=== PATIENT | female | born 1975 | race Hispanic/Latino ===

== ENCOUNTER 2018-11-20 19:17 | Emergency (ER) | payer OTHER ==
[~2018-11-20 19:17] MED LIST: GEMFIBROZIL PO; INSU100I3 SQ; INSU100I4 SQ; OMEG1CAP31 PO
[2018-11-20 20:01] LABS: BASOPHILS % (AUTO) 0.7 % (0.0-5.0); EOSINOPHILS % (AUTO) 0.8 % (0.0-8.0); HEMATOCRIT 37.4 % (36-48); LYMPHOCYTES % (AUTO) 21.5 % (21.0-51.0); MEAN CORPUSCULAR HEMOGLOBIN 30.2 pg (27.0-33.0); MEAN CORPUSCULAR HGB CONC 34.7 g/dL (32.0-36.0); MONOCYTES % (AUTO) 6.1 % (3.0-13.0); NEUTROPHILS % (AUTO) 70.9 % (40.0-77.0); PLATELET COUNT (AUTO) 205 K/uL (130-400); RED CELL DISTRIBUTION WIDTH 12.5 % (11.0-15.5); WHITE BLOOD COUNT (AUTO) 8.6 K/uL (4.8-10.8)
[2018-11-20 20:12] LABS: CREATININE 0.6 mg/dL (0.5-1.5); POTASSIUM 3.2 mmol/L (3.5-5.1)
[2018-11-20 20:17] LABS: ALBUMIN 3.7 g/dL (3.5-5.0); BILIRUBIN,TOTAL 0.2 mg/dL (0.2-1.0); TOTAL PROTEIN, SERUM 8.3 g/dL (6.0-8.3)
[2018-11-20] MEDS ORDERED: POTASSIUM CHLORIDE 20 MEQ ERTAB PO ONE (20:24)
[2018-11-20] MEDS ORDERED: ONDANSETRON HCL 4 MG/2 ML VIAL ONE (21:00)
[2018-11-20] MEDS ORDERED: DEXTROSE 50%-WATER 50 ML DISP.SYRIN IV ONE (21:16)
== END 2018-11-20 23:14 | disposition home or self-care (01) ==
LOC: EDH 19:17
DX: E11.649 Type 2 diabetes mellitus with hypoglycemia without coma (principal); E87.6 Hypokalemia; R00.2 Palpitations; R61 Generalized hyperhidrosis; T38.3X5A Adverse effect of insulin and oral hypoglycemic [antidiabetic] drugs, initial encounter; Z79.4 Long term (current) use of insulin; Y92.89 Other specified places as the place of occurrence of the external cause
CPT/HCPCS: 36415; 80053; 82948 ×4; 85025; 93005; 96374; 96375; 99285; J2405; J7070

== ENCOUNTER → 2019-05-08 | Outpatient (CLI) | payer OTHER | END | disposition home or self-care (01) | LOC: LAB 09:27 | PROVIDERS: ATTEND Internal Medicine Gastroenterology | DX: R19.7 Diarrhea, unspecified (principal) | CPT/HCPCS: 36415; 82656; 82784; 83516; 87507 ==

== ENCOUNTER 2019-05-15 06:06 | Day surgery (SDC) | payer OTHER ==
[~2019-05-15] VITALS: Ht 162.6 cm; Wt 59.0 kg
[2019-05-15] MEDS ORDERED: SODIUM CHLORIDE 0.9% 1000ML 1,000 ML IV ONE (06:32)
[2019-05-15] MEDS ORDERED: PROPOFOL 10 MG/ML 20ML VIAL IV ONE (06:55)
[2019-05-15 07:11] VITALS: BP 137/79
--- NOTE | 2019-05-15 07:18 | NUR ---
NURSING REPORTED B/S OF 281 TO NNEKA SILVER CRNA AND NO NEW ORDERS RECD Addendum: 05/15/19 at 0720 by ANISH SETH RN Amended: Links added.
[2019-05-15 08:36] VITALS: BP 104/65
[2019-05-15 08:41] VITALS: BP 113/69
--- NOTE | 2019-05-15 08:45 | NUR ---
SPOKE WITH GI AND INFORMED THAT PT. WAS TACHY 110. IS AWARE THAT PT RUNS IN 100'S FOR HR. NO NEW ORDERS GIVEN FOR PT. Addendum: 05/15/19 at 0922 by ARUNA CAMARILLO RN RN DR. COBB IS AWARE OF PT. HR NO NEW ORDERS GIVEN
[2019-05-15 08:46] VITALS: BP 124/90
[2019-05-15 09:00] VITALS: BP 148/88
--- NOTE | 2019-05-15 09:10 | NUR ---
PT LEFT VIA WHEELCHAIR IN PVT CAR WITH D/C INSTRUCTIONS GIVEN TO DAUGHTER ALONG WITH F/U APPT. PT. V/S BACK TO HER BASE LINE NO COMPLICATIONS UPON D/C.
== END 2019-05-15 09:10 | disposition home or self-care (01) ==
LOC: ENDO 06:06 → DAH 06:06 → ENDO 09:10
PROVIDERS: ATTEND Internal Medicine Gastroenterology
DX: K52.9 Noninfective gastroenteritis and colitis, unspecified (principal); E11.9 Type 2 diabetes mellitus without complications; J45.909 Unspecified asthma, uncomplicated; Z79.4 Long term (current) use of insulin; Z79.899 Other long term (current) drug therapy; Z90.49 Acquired absence of other specified parts of digestive tract
CPT/HCPCS: 45380; 81025; 82948 ×2; 88305; A4215; A4221; A4222; A4223; A4606; A4615; A4663; J2704; J7030

== ENCOUNTER → 2019-06-05 | Outpatient (CLI) | payer OTHER ==
[2019-06-05 16:10] LABS: BASOPHILS % (AUTO) 0.4 % (0.0-5.0); EOSINOPHILS % (AUTO) 0.4 % (0.0-8.0); LYMPHOCYTES % (AUTO) 20.2 % (21.0-51.0); MEAN CORPUSCULAR HEMOGLOBIN 28.6 pg (27.0-33.0); MEAN CORPUSCULAR HGB CONC 34.2 g/dL (32.0-36.0); MEAN CORPUSCULAR VOLUME 83.7 fL (79-99); MONOCYTES % (AUTO) 6.2 % (3.0-13.0); NEUTROPHILS % (AUTO) 72.5 % (40.0-77.0); PLATELET COUNT (AUTO) 183 K/uL (130-400); RED BLOOD CELL COUNT(AUTO) 4.54 MIL/uL (4.00-5.50); RED CELL DISTRIBUTION WIDTH 12.2 % (11.0-15.5); WHITE BLOOD COUNT (AUTO) 7.7 K/uL (4.8-10.8)
[2019-06-05 16:30] LABS: ALBUMIN 3.6 g/dL (3.5-5.0); BILIRUBIN,TOTAL 0.2 mg/dL (0.2-1.0); CREATININE 0.8 mg/dL (0.5-1.5); POTASSIUM 4.5 mmol/L (3.5-5.1); TOTAL PROTEIN, SERUM 8.4 g/dL (6.0-8.3)
== END | disposition home or self-care (01) ==
LOC: LAB 15:48
PROVIDERS: ATTEND Internal Medicine Gastroenterology
DX: K86.81 Exocrine pancreatic insufficiency (principal)
CPT/HCPCS: 36415; 80053; 83690; 85025

== ENCOUNTER → 2019-06-09 | Outpatient (CLI) | payer OTHER ==
[~2019-06-09] MED LIST changes: +IOHEXOL 350 MG/ML 100ML INFUS..BTL IV ONE
== END | disposition home or self-care (01) ==
LOC: RAH 07:33
PROVIDERS: ATTEND Internal Medicine Gastroenterology
DX: K86.81 Exocrine pancreatic insufficiency (principal)
CPT/HCPCS: 74170; Q9967

== ENCOUNTER → 2019-07-24 | Outpatient (CLI) | payer OTHER ==
[~2019-07-24] MED LIST changes: -IOHEXOL 350 MG/ML 100ML INFUS..BTL IV ONE
[2019-07-24 11:13] LABS: CREATININE 0.7 mg/dL (0.5-1.5); POTASSIUM 4.2 mmol/L (3.5-5.1)
== END | disposition home or self-care (01) ==
LOC: LAB 10:26
PROVIDERS: ATTEND Internal Medicine Gastroenterology
DX: K86.81 Exocrine pancreatic insufficiency (principal); E87.1 Hypo-osmolality and hyponatremia
CPT/HCPCS: 36415; 80048; 80061; 82784

== ENCOUNTER → 2019-07-29 | Outpatient (CLI) | payer OTHER | END | disposition home or self-care (01) | LOC: RAH 11:00 | PROVIDERS: ATTEND Internal Medicine Gastroenterology | DX: K30 Functional dyspepsia (principal) | CPT/HCPCS: 78264; A9541 ==

== ENCOUNTER → 2019-10-05 | Outpatient (CLI) | payer OTHER | END | disposition home or self-care (01) | LOC: LAB 13:45 | PROVIDERS: ATTEND Internal Medicine Gastroenterology | DX: K86.81 Exocrine pancreatic insufficiency (principal) | CPT/HCPCS: 36415; 82784; 82787 ==

== ENCOUNTER → 2019-11-16 | Outpatient (CLI) | payer OTHER ==
[2019-11-16 11:32] LABS: ALBUMIN 3.6 g/dL (3.5-5.0); BILIRUBIN,TOTAL 0.3 mg/dL (0.2-1.0); CREATININE 0.7 mg/dL (0.5-1.5); POTASSIUM 4.1 mmol/L (3.5-5.1); THYROID STIMULATING HORMONE 0.85 uIU/mL (0.36-3.74)
== END | disposition home or self-care (01) ==
LOC: LAB 10:04
PROVIDERS: ATTEND Family Medicine
DX: E11.65 Type 2 diabetes mellitus with hyperglycemia (principal); R53.83 Other fatigue; E78.2 Mixed hyperlipidemia; E03.9 Hypothyroidism, unspecified
CPT/HCPCS: 36415; 80053; 80061; 82306; 84443

== ENCOUNTER 2020-03-25 13:50 | Emergency (ER) | payer OTHER ==
[2020-03-25 16:02] LABS: BASOPHILS % (AUTO) 0.4 % (0.0-5.0); EOSINOPHILS % (AUTO) 0.4 % (0.0-8.0); HEMATOCRIT 35.7 % (36-48); LYMPHOCYTES % (AUTO) 24.2 % (21.0-51.0); MEAN CORPUSCULAR HEMOGLOBIN 28.8 pg (27.0-33.0); MEAN CORPUSCULAR HGB CONC 35.9 g/dL (32.0-36.0); MEAN CORPUSCULAR VOLUME 80.4 fL (79-99); MONOCYTES % (AUTO) 6.5 % (3.0-13.0); NEUTROPHILS % (AUTO) 68.2 % (40.0-77.0); PLATELET COUNT (AUTO) 187 K/uL (130-400); RED BLOOD CELL COUNT(AUTO) 4.44 MIL/uL (4.00-5.50); WHITE BLOOD COUNT (AUTO) 7.5 K/uL (4.8-10.8)
[2020-03-25 16:16] LABS: CREATININE 0.8 mg/dL (0.5-1.5); INR 0.87 (0.85-1.15); PROTHROMBIN TIME 9.4 SEC (9.6-11.6)
[2020-03-25 16:20] LABS: ALBUMIN 3.4 g/dL (3.5-5.0); BILIRUBIN,TOTAL 0.3 mg/dL (0.2-1.0); TOTAL PROTEIN, SERUM 8.6 g/dL (6.0-8.3)
[2020-03-25 16:33] LABS: B-TYPE NATRIURETIC PEPTIDE 14 pg/mL (0-100)
[2020-03-25] MEDS ORDERED: HYDROCODONE/ACETAMINOPHEN 5/325 MG TAB ONE (16:37)
[2020-03-25] MEDS ORDERED: ASPIRIN 325 MG TABLET ONE (16:37)
[2020-03-25] MEDS ORDERED: PENICILLIN G BENZATHINE LA 600,000 UNITS/ML SYG IM ONE (16:38)
[2020-03-25] MEDS ORDERED: SODIUM CHLORIDE 0.9% 500ML 500 ML IV ONE (16:38)
[2020-03-25] MEDS ORDERED: PENICILLIN G BENZATHINE LA 1.2 MILUNITS/2 ML SYG ONE (17:54)
[2020-03-25] MEDS ORDERED: IBUPROFEN 600 MG TABLET ONE (19:06)
[2020-03-25] MEDS ORDERED: SODIUM CHLORIDE 0.9% 1000ML 1,000 ML IV ONE ×2 (19:06→19:49)
[2020-03-25] MEDS ORDERED: CLINDAMYCIN 900 MG/D5% WATER 50 ML IV ONE (19:49)
[2020-03-25] MEDS ORDERED: ACETAMINOPHEN 325 MG TAB ONE (20:47)
== END 2020-03-25 21:11 | disposition home or self-care (01) ==
LOC: EDH 13:50
DX: K04.7 Periapical abscess without sinus (principal); R00.0 Tachycardia, unspecified; R07.89 Other chest pain; E11.9 Type 2 diabetes mellitus without complications; Z90.49 Acquired absence of other specified parts of digestive tract
CPT/HCPCS: 36415; 71045; 80053; 82550; 83605 ×2; 83690; 83880; 84484 ×2; 85025; 85610; 85730; 87040 ×2; 93005; 96361 ×2; 96365; 96372; 99285; J0561; J3490; J7030 ×2; J7040

== ENCOUNTER → 2020-07-29 | Outpatient (CLI) | payer OTHER ==
[2020-07-29 09:05] LABS: BASOPHILS % (AUTO) 0.4 % (0.0-5.0); EOSINOPHILS % (AUTO) 1.4 % (0.0-8.0); LYMPHOCYTES % (AUTO) 20.1 % (21.0-51.0); MEAN CORPUSCULAR HEMOGLOBIN 29.5 pg (27.0-33.0); MEAN CORPUSCULAR HGB CONC 34.5 g/dL (32.0-36.0); MEAN CORPUSCULAR VOLUME 85.5 fL (79-99); MONOCYTES % (AUTO) 6.3 % (3.0-13.0); NEUTROPHILS % (AUTO) 71.4 % (40.0-77.0); PLATELET COUNT (AUTO) 191 K/uL (130-400); RED BLOOD CELL COUNT(AUTO) 3.86 MIL/uL (4.00-5.50); RED CELL DISTRIBUTION WIDTH 11.9 % (11.0-15.5); WHITE BLOOD COUNT (AUTO) 7.1 K/uL (4.8-10.8)
[2020-07-29 09:18] LABS: ALBUMIN 3.2 g/dL (3.5-5.0); BILIRUBIN,TOTAL 0.3 mg/dL (0.2-1.0); CREATININE 0.6 mg/dL (0.5-1.5); MAGNESIUM 1.5 mg/dL (1.80-2.40); POTASSIUM 4.1 mmol/L (3.5-5.1); TOTAL PROTEIN, SERUM 7.5 g/dL (6.0-8.3)
== END | disposition home or self-care (01) ==
LOC: LAB 08:39
PROVIDERS: ATTEND Family Medicine
DX: D72.828 Other elevated white blood cell count (principal); E87.6 Hypokalemia; R00.0 Tachycardia, unspecified; E11.65 Type 2 diabetes mellitus with hyperglycemia
CPT/HCPCS: 36415; 80053; 83735; 85025

== ENCOUNTER 2021-04-10 11:08 | Inpatient (IN) | payer OTHER ==
[~2021-04-10] VITALS: Ht 162.6 cm; Wt 57.7 kg
[2021-04-10 12:35] LABS: ABG OXYGEN SATURATION 51.6 % (95.0-99.0); BASE EXCESS,VENOUS BLOOD GAS -0.4 (-2.0-3.0); PCO2,VENOUS BLOOD GAS 44 (32-45); PH,VENOUS BLOOD GAS 7.375 (7.350-7.450)
[2021-04-10 12:41] LABS: BASOPHILS % (AUTO) 0.5 % (0.0-5.0); EOSINOPHILS % (AUTO) 0.3 % (0.0-8.0); HEMATOCRIT 31.1 % (36-48); LYMPHOCYTES % (AUTO) 18.4 % (21.0-51.0); MEAN CORPUSCULAR HEMOGLOBIN 29.9 pg (27.0-33.0); MONOCYTES % (AUTO) 5.6 % (3.0-13.0); NEUTROPHILS % (AUTO) 74.7 % (40.0-77.0); PLATELET COUNT (AUTO) 237 K/uL (130-400); RED BLOOD CELL COUNT(AUTO) 3.84 MIL/uL (4.00-5.50); WHITE BLOOD COUNT (AUTO) 8.6 K/uL (4.8-10.8)
[2021-04-10 12:57] LABS: CARBON DIOXIDE 25 mmol/L (21-32); CHLORIDE 97 mmol/L (101-111); CREATININE 0.7 mg/dL (0.5-1.5); GLOMERULAR FILTR. RATE CALC 96 mL/min (>60); GLUCOSE,RANDOM 380 mg/dL (70-105); POTASSIUM 3.6 mmol/L (3.5-5.1); SODIUM SERUM 131 mmol/L (136-145); UREA NITROGEN, BLOOD 10 mg/dL (7-18)
[2021-04-10 13:01] LABS: ALANINE AMINOTRANSFERASE 23 U/L (12-78); ALBUMIN 3.2 g/dL (3.5-5.0); ASPARTATE AMINOTRANSFERASE 11 U/L (10-37); BILIRUBIN,TOTAL 0.2 mg/dL (0.2-1.0); TOTAL PROTEIN, SERUM 8.5 g/dL (6.0-8.3)
[2021-04-10 13:43] LABS: ERYTHROCYTE SEDIMENTATION RATE 100 MM/HR (0-20)
[2021-04-10] MEDS ORDERED: CLINDAMYCIN IVPB 900MG/50ML 50 ML IV ONE ×2 (14:56→15:00)
[2021-04-10] MEDS ORDERED: ONDANSETRON 4MG INJ ONE (14:56)
[2021-04-10] MEDS ORDERED: MORPHINE 2 MG SYG ONE (14:56)
[2021-04-10] MEDS ORDERED: 0.9%NACL 1000ML 2,000 ML IV ONE (14:57)
[2021-04-10] MEDS ORDERED: ONDANSETRON 4MG INJ IVP ONE (15:00)
[2021-04-10] MEDS ORDERED: 0.9%NACL 1000ML 1,641 ML IV ONE (15:00)
[2021-04-10] MEDS ORDERED: MORPHINE 2 MG SYG IVP ONE (15:00)
[2021-04-10] MEDS ORDERED: VANCOMYCIN PROTOCOL PER PHARMACY IV SCH (16:30)
[2021-04-10] MEDS ORDERED: 0.9%NACL 50ML 50 ML IV ONE (17:44)
[2021-04-10] MEDS: ZOSYN 3.375GM +NS 50ML IV SCH (17:49)
[2021-04-10] MEDS: VANCOMYCIN 1G/250ML KIT 250 ML IV SCH (18:01)
[2021-04-10] MEDS ORDERED: TETANUS/DIPHTHERIA TOXOID [ADULT] 0.5 ML VIAL IM ONE (18:30)
[2021-04-10] MEDS: HYDROMORPHONE 0.5 MG SYG (0.5MG/0.5ML) IVP PRN (21:18)
[2021-04-10] MEDS: INSULIN HUMULIN R 100 UNIT/ML 3ML SQ SCH (21:35)
[2021-04-10] MEDS: INSULIN GLARGINE 100 UNITS/ML 10 ML VIAL SQ SCH (21:35)
[2021-04-10] MEDS ORDERED: INSU100V12 SQ (21:44)
[2021-04-10] MEDS ORDERED: INSU100I15 SQ (21:44)
[2021-04-10] MEDS ORDERED: TRAM50TA4 PO (21:44)
[2021-04-10 22:00] VITALS: BP 136/79
[2021-04-10] MEDS ORDERED: CIPR500T10 PO (23:13)
[2021-04-10] MEDS ORDERED: MUPI22O TP (23:13)
[2021-04-10] MEDS ORDERED: AMOX1TAB16 PO (23:13)
[2021-04-11 00:35] VITALS: BP 107/69
[2021-04-11] MEDS: ZOSYN 3.375GM +NS 50ML IV SCH ×3 (00:50→16:36)
[2021-04-11] MEDS: TRAMADOL HCL 50 MG TABLET PO PRN ×2 (04:03→09:02)
[2021-04-11 04:16] VITALS: BP 99/59
[2021-04-11 04:55] LABS: HEMATOCRIT 26.6 % (36-48); MEAN CORPUSCULAR HEMOGLOBIN 29.6 pg (27.0-33.0); MEAN CORPUSCULAR VOLUME 84.7 fL (79-99); RED BLOOD CELL COUNT(AUTO) 3.14 MIL/uL (4.00-5.50); RED CELL DISTRIBUTION WIDTH 12.6 % (11.0-15.5); WHITE BLOOD COUNT (AUTO) 5.5 K/uL (4.8-10.8)
[2021-04-11] MEDS: ONDANSETRON 4MG INJ IVP PRN ×4 (05:19→22:01)
[2021-04-11 05:26] LABS: ALBUMIN 2.3 g/dL (3.5-5.0); BILIRUBIN,TOTAL 0.2 mg/dL (0.2-1.0); CREATININE 0.5 mg/dL (0.5-1.5); MAGNESIUM 1.8 mg/dL (1.80-2.40); PHOSPHORUS 3.4 mg/dL (2.5-4.9); POTASSIUM 3.3 mmol/L (3.5-5.1); TOTAL PROTEIN, SERUM 6.4 g/dL (6.0-8.3)
[2021-04-11] MEDS: INSULIN GLARGINE 100 UNITS/ML 10 ML VIAL SQ SCH ×2 (06:20→21:35)
[2021-04-11] MEDS: INSULIN HUMULIN R 100 UNIT/ML 3ML SQ SCH ×4 (06:21→20:03)
[2021-04-11 08:00] VITALS: BP 128/79
[2021-04-11] MEDS: VANCOMYCIN 1G/250ML KIT 250 ML IV SCH ×2 (09:01→20:12)
[2021-04-11] MEDS ORDERED: MAGNESIUM 2GM PREMIX 50ML 50 ML IV PRN (11:00)
[2021-04-11] MEDS ORDERED: KCL 20 MEQ ERTAB PO PRN (11:00)
[2021-04-11] MEDS ORDERED: POTASSIUM CHLORIDE 20MEQ/100ML 100 ML IV PRN (11:00)
[2021-04-11] MEDS ORDERED: LIDOCAINE HCL-MPF 1% 2ML VIAL IV PRN (11:00)
[2021-04-11] MEDS: HYDROMORPHONE 0.5 MG SYG (0.5MG/0.5ML) IVP PRN ×2 (15:56→22:06)
[2021-04-11 16:00] VITALS: BP 151/94
[2021-04-11] MEDS: PROMETHAZINE HCL 25 MG/ML 1ML AMPULE IM PRN (18:46)
[2021-04-11 20:33] VITALS: BP 156/95
[2021-04-11] MEDS: POTASSIUM CHLORIDE 10% ELIXIR 20 MEQ/15 ML UDCUP PO PRN (22:02)
[2021-04-12] VITALS (8 sets, daily range): BP systolic 107–157; BP diastolic 63–101
[2021-04-12] MEDS: POTASSIUM CHLORIDE 10% ELIXIR 20 MEQ/15 ML UDCUP PO PRN ×2 (00:39→02:34)
[2021-04-12] MEDS: ZOSYN 3.375GM +NS 50ML IV SCH ×3 (00:39→17:07)
[2021-04-12] MEDS: HYDROMORPHONE 0.5 MG SYG (0.5MG/0.5ML) IVP PRN ×3 (03:41→20:28)
[2021-04-12 03:48] LABS: BASOPHILS % (AUTO) 0.3 % (0.0-5.0); EOSINOPHILS % (AUTO) 0.7 % (0.0-8.0); LYMPHOCYTES % (AUTO) 28.7 % (21.0-51.0); MEAN CORPUSCULAR HEMOGLOBIN 29.4 pg (27.0-33.0); MEAN CORPUSCULAR HGB CONC 34.4 g/dL (32.0-36.0); MEAN CORPUSCULAR VOLUME 85.4 fL (79-99); MONOCYTES % (AUTO) 6.6 % (3.0-13.0); NEUTROPHILS % (AUTO) 63.4 % (40.0-77.0); NUCLEATED RED BLOOD CELLS 0.3 % (0.0-0.19); PLATELET COUNT (AUTO) 187 K/uL (130-400); RED BLOOD CELL COUNT(AUTO) 3.16 MIL/uL (4.00-5.50); RED CELL DISTRIBUTION WIDTH 12.4 % (11.0-15.5)
[2021-04-12 04:00] LABS: CARBON DIOXIDE 27 mmol/L (21-32); CHLORIDE 108 mmol/L (101-111); CREATININE 0.5 mg/dL (0.5-1.5); GLOMERULAR FILTR. RATE CALC 142 mL/min (>60); GLUCOSE,RANDOM 143 mg/dL (70-105); POTASSIUM 4.8 mmol/L (3.5-5.1); SODIUM SERUM 139 mmol/L (136-145); UREA NITROGEN, BLOOD 6 mg/dL (7-18)
[2021-04-12 04:06] LABS: LIPASE < 50 U/L (114-286)
[2021-04-12] MEDS: INSULIN HUMULIN R 100 UNIT/ML 3ML SQ SCH ×4 (05:46→21:20)
[2021-04-12] MEDS: INSULIN GLARGINE 100 UNITS/ML 10 ML VIAL SQ SCH ×2 (06:17→21:21)
[2021-04-12] MEDS: TRAMADOL HCL 50 MG TABLET PO PRN (06:23)
[2021-04-12] MEDS ORDERED: 0.9%NACL 1000ML 1,000 ML IV ONE (07:00)
[2021-04-12] MEDS: PANTOPRAZOLE 40 MG/VIAL IVP SCH (07:52)
[2021-04-12] MEDS: PROMETHAZINE HCL 25 MG/ML 1ML AMPULE IM PRN ×2 (07:54→14:05)
[2021-04-12] MEDS ORDERED: VANCOMYCIN 2GM/500ML NS IV SCH ×2 (11:00)
[2021-04-12] MEDS ORDERED: COMPOUND IV REFRIGERATED 1 EACH IVSOLN MISC PRN (11:00)
[2021-04-12] MEDS: DOCUSATE SODIUM 100 MG CAP PO SCH ×2 (12:09→20:08)
[2021-04-12] MEDS ORDERED: VANCOMYCIN 750MG VIAL ONE (19:51)
[2021-04-12] MEDS: 0.9% NACL 250ML 250 ML IV SCH (20:14)
[2021-04-12] MEDS: VANCOMYCIN 750MG VIAL IV SCH (20:14)
[2021-04-12] MEDS: ONDANSETRON 4MG INJ IVP PRN (20:28)
[2021-04-13] MEDS: ZOSYN 3.375GM +NS 50ML IV SCH ×2 (01:37→09:58)
[2021-04-13] MEDS: HYDROMORPHONE 0.5 MG SYG (0.5MG/0.5ML) IVP PRN (02:03)
[2021-04-13] MEDS: ONDANSETRON 4MG INJ IVP PRN (02:03)
[2021-04-13] MEDS: PROMETHAZINE HCL 25 MG/ML 1ML AMPULE IM PRN ×2 (02:52→09:53)
[2021-04-13 04:33] VITALS: BP 156/92
[2021-04-13] MEDS: INSULIN HUMULIN R 100 UNIT/ML 3ML SQ SCH ×2 (05:43→11:30)
[2021-04-13] MEDS ORDERED: ACETAMINOPHEN WITH CODEINE 1 TAB TAB PO PRN (07:00)
[2021-04-13] MEDS: INSULIN GLARGINE 100 UNITS/ML 10 ML VIAL SQ SCH (07:56)
[2021-04-13 08:00] VITALS: BP 169/86
[2021-04-13] MEDS: METOCLOPRAMIDE 5 MG TABLET PO SCH ×2 (08:00→12:24)
[2021-04-13] MEDS: DOCUSATE SODIUM 100 MG CAP PO SCH ×2 (09:00→09:58)
[2021-04-13] MEDS: 0.9% NACL 250ML 250 ML IV SCH (09:58)
[2021-04-13] MEDS: VANCOMYCIN 750MG VIAL IV SCH (09:58)
[2021-04-13] MEDS: PANTOPRAZOLE 40 MG/VIAL IVP SCH (09:58)
[2021-04-13 12:00] VITALS: BP 154/91
== END 2021-04-13 16:20 | disposition home or self-care (01) | DRG 623 ==
LOC: EDH 11:08 → EDHIP 15:15 → 4BH 22:02
PROVIDERS: ADMIT Family Medicine; ATTEND Family Medicine
PROC: 0JBQ0ZZ Excision of Right Foot Subcutaneous Tissue and Fascia, Open Approach (ICD-10-PCS; principal; 2021-04-13)
DX: E11.621 Type 2 diabetes mellitus with foot ulcer (principal); L03.115 Cellulitis of right lower limb; S90.821A Blister (nonthermal), right foot, initial encounter; L97.519 Non-pressure chronic ulcer of other part of right foot with unspecified severity; E11.40 Type 2 diabetes mellitus with diabetic neuropathy, unspecified; E78.5 Hyperlipidemia, unspecified; I10 Essential (primary) hypertension; L60.2 Onychogryphosis; E87.5 Hyperkalemia; B96.20 Unspecified Escherichia coli [E. coli] as the cause of diseases classified elsewhere; B37.9 Candidiasis, unspecified; E11.51 Type 2 diabetes mellitus with diabetic peripheral angiopathy without gangrene; B35.1 Tinea unguium; Y93.89 Activity, other specified; Y92.89 Other specified places as the place of occurrence of the external cause; Y99.8 Other external cause status; Z79.4 Long term (current) use of insulin; Z90.49 Acquired absence of other specified parts of digestive tract
CPT/HCPCS: 36415; 36600; 73630; 73700; 73718; 74176; 76700; 80048; 80053; 80202; 82010; 82803; 82948; 83605; 83690; 83735; 84100; 84484; 84703; 85025; 85027; 85651; 86140; 87070; 87076; 87077; 87186; 93925; 97039; C9113; G0378; J1170; J1815; J2405; J2543; J2550; J3370; J3475; J3490; J7030; J7040

== ENCOUNTER 2021-10-17 09:08 | Inpatient (IN) | payer OTHER ==
[~2021-10-17] VITALS: Ht 162.6 cm; Wt 53.4 kg
[2021-10-17] VITALS (16 sets, daily range): BP systolic 94–142; BP diastolic 55–91
[~2021-10-17 09:08] MED LIST changes: +AMOX1TAB16 PO; -GEMFIBROZIL PO; +INSU100I15 SQ; -INSU100I3 SQ; -INSU100I4 SQ; +INSU100V12 SQ; +MUPI22O TP; -OMEG1CAP31 PO; +TRAM50TA4 PO
[2021-10-17 09:57] LABS: HEMATOCRIT 26.2 % (36-48); MEAN CORPUSCULAR HEMOGLOBIN 29.4 pg (27.0-33.0); MEAN CORPUSCULAR HGB CONC 34.4 g/dL (32.0-36.0); MEAN CORPUSCULAR VOLUME 85.6 fL (79-99); PLATELET COUNT (AUTO) 303 K/uL (130-400); RED BLOOD CELL COUNT(AUTO) 3.06 MIL/uL (4.00-5.50); RED CELL DISTRIBUTION WIDTH 12.6 % (11.0-15.5)
[2021-10-17] MEDS: ZOSYN 3.375GM +NS 50ML IV SCH ×2 (10:18→18:40)
[2021-10-17 10:31] LABS: ALBUMIN 1.7 g/dL (3.5-5.0); BILIRUBIN,TOTAL 0.7 mg/dL (0.2-1.0); CREATININE 0.9 mg/dL (0.5-1.5); POTASSIUM 3.9 mmol/L (3.5-5.1); TOTAL PROTEIN, SERUM 8.2 g/dL (6.0-8.3)
[2021-10-17 10:48] LABS: BAND NEUTROPHILS % (MANUAL) 2 % (0-2); EOSINOPHILS % (MANUAL) 1 % (1-6); LYMPHOCYTES % (MANUAL) 9 % (22-44); MAN.DIFF COMMENT-IMPRESSION MANUAL DIFFERENTIAL; MONOCYTES % (MANUAL) 5 % (2-9); SEGMENTED NEUTROPHILS % 83 % (40-70)
[2021-10-17 10:49] LABS: PLATELET MORPHOLOGY COMMENT ADEQUATE
[2021-10-17] MEDS ORDERED: GADOTERATE MEGLUMINE 10 MMOL/20 ML VIAL IV ONE (11:34)
[2021-10-17] MEDS ORDERED: ZOSYN 3.375GM +NS 50ML IV SCH (12:00)
[2021-10-17] MEDS ORDERED: 0.9%NACL 1000ML 1,000 ML IV SCH (12:00)
[2021-10-17] MEDS ORDERED: VANCOMYCIN 1G VIAL IVPB SCH (12:00)
[2021-10-17] MEDS ORDERED: ACETAMINOPHEN 325 MG TAB PO PRN (12:00)
[2021-10-17] MEDS: HYDROMORPHONE 0.5 MG SYG (0.5MG/0.5ML) IVP PRN ×2 (12:04→16:07)
[2021-10-17] MEDS ORDERED: VANCOMYCIN 1G/250ML KIT 250 ML IV ONE (13:00)
[2021-10-17] MEDS: INSULIN HUMULIN R 100 UNIT/ML 3ML SQ SCH ×2 (17:36→20:13)
[2021-10-17] MEDS: 0.9%NACL 1000ML 1,000 ML IV SCH ×2 (18:47→23:11)
[2021-10-17] MEDS ORDERED: BUPIVACAINE/PF 0.5% 30ML VIAL ONE (19:19)
[2021-10-17] MEDS ORDERED: LIDOCAINE HCL 1% MDV 50ML VIAL ONE (19:19)
[2021-10-17 19:30] LABS: INR 1.01 (0.85-1.15)
[2021-10-17 19:31] LABS: PARTIAL THROMBOPLASTIN TIME 31.9 SEC (26.3-35.5)
[2021-10-17] MEDS ORDERED: MIDAZOLAM HCL 1 MG/ML 2ML VIAL ONE ×2 (20:18→21:15)
[2021-10-17] MEDS ORDERED: FENTANYL CITRATE PF 50 MCG/1 ML 2ML VIAL ONE ×2 (20:19→21:15)
[2021-10-17] MEDS: INSULIN GLARGINE 100 UNITS/ML 10 ML VIAL SQ SCH (20:20)
[2021-10-17] MEDS: ATORVASTATIN 40 MG TABLET PO SCH (20:20)
[2021-10-18] VITALS (8 sets, daily range): BP systolic 95–146; BP diastolic 55–86
[2021-10-18] MEDS ORDERED: AMOX1TAB16 PO (00:31)
[2021-10-18] MEDS ORDERED: CIPR500T10 PO (00:31)
[2021-10-18] MEDS ORDERED: INSU300I SQ (00:31)
[2021-10-18] MEDS: VANCOMYCIN 500MG+NS 100ML 100 ML IV SCH ×3 (00:32→23:50)
[2021-10-18] MEDS: ZOSYN 3.375GM +NS 50ML IV SCH ×4 (01:21→18:01)
[2021-10-18] MEDS: HYDROMORPHONE 0.5 MG SYG (0.5MG/0.5ML) IVP PRN ×4 (02:25→21:47)
[2021-10-18] MEDS: 0.9%NACL 1000ML 1,000 ML IV SCH ×3 (03:45→21:47)
[2021-10-18] MEDS: ONDANSETRON 4MG INJ IVP PRN ×3 (03:48→19:39)
[2021-10-18 05:10] LABS: HEMATOCRIT 22.7 % (36-48); MEAN CORPUSCULAR HEMOGLOBIN 28.7 pg (27.0-33.0); RED BLOOD CELL COUNT(AUTO) 2.61 MIL/uL (4.00-5.50); RED CELL DISTRIBUTION WIDTH 12.7 % (11.0-15.5); WHITE BLOOD COUNT (AUTO) 10.6 K/uL (4.8-10.8)
[2021-10-18 05:33] LABS: ALBUMIN 1.5 g/dL (3.5-5.0); BILIRUBIN,TOTAL 0.9 mg/dL (0.2-1.0); CREATININE 0.8 mg/dL (0.5-1.5); MAGNESIUM 1.9 mg/dL (1.80-2.40); POTASSIUM 3.9 mmol/L (3.5-5.1); TOTAL PROTEIN, SERUM 7.2 g/dL (6.0-8.3)
[2021-10-18] MEDS: INSULIN HUMULIN R 100 UNIT/ML 3ML SQ SCH ×4 (05:50→20:34)
[2021-10-18] MEDS: INSULIN GLARGINE 100 UNITS/ML 10 ML VIAL SQ SCH ×2 (05:51→20:35)
[2021-10-18] MEDS: ASPIRIN 81MG CHEW TAB PO SCH (08:32)
[2021-10-18] MEDS: IRON SUCROSE COMPLEX 100 MG/5 ML VIAL IVP SCH (08:32)
[2021-10-18] MEDS ORDERED: IRON SUCROSE COMPLEX 100 MG in 0.9%NACL 50ML 50 ML IV SCH (09:00)
[2021-10-18] MEDS ORDERED: DIPH,PERTUSS(ACELL),TET VAC/PF 0.5 ML VIAL IM ONE (17:00)
[2021-10-18] MEDS: ATORVASTATIN 40 MG TABLET PO SCH (20:33)
[2021-10-19] VITALS (8 sets, daily range): BP systolic 102–156; BP diastolic 64–95
[2021-10-19] MEDS: ZOSYN 3.375GM +NS 50ML IV SCH ×4 (01:08→18:20)
[2021-10-19 04:21] LABS: HEMATOCRIT 21.1 % (36-48); MEAN CORPUSCULAR HGB CONC 32.2 g/dL (32.0-36.0); MEAN CORPUSCULAR VOLUME 86.8 fL (79-99); RED BLOOD CELL COUNT(AUTO) 2.43 MIL/uL (4.00-5.50); RED CELL DISTRIBUTION WIDTH 12.7 % (11.0-15.5); WHITE BLOOD COUNT (AUTO) 6.7 K/uL (4.8-10.8)
[2021-10-19] MEDS: HYDROMORPHONE 0.5 MG SYG (0.5MG/0.5ML) IVP PRN ×4 (04:43→20:40)
[2021-10-19] MEDS: ONDANSETRON 4MG INJ IVP PRN (04:43)
[2021-10-19 04:47] LABS: ALBUMIN 1.3 g/dL (3.5-5.0); BILIRUBIN,TOTAL 0.6 mg/dL (0.2-1.0); CREATININE 0.7 mg/dL (0.5-1.5); MAGNESIUM 1.9 mg/dL (1.80-2.40); POTASSIUM 3.5 mmol/L (3.5-5.1); TOTAL PROTEIN, SERUM 6.7 g/dL (6.0-8.3)
[2021-10-19] MEDS: INSULIN HUMULIN R 100 UNIT/ML 3ML SQ SCH ×4 (05:57→20:40)
[2021-10-19] MEDS: INSULIN GLARGINE 100 UNITS/ML 10 ML VIAL SQ SCH ×2 (05:59→20:41)
[2021-10-19] MEDS ORDERED: FUROSEMIDE 20MG VIAL IV ONE (09:00)
[2021-10-19] MEDS ORDERED: KCL 20 MEQ ERTAB PO SCH (09:00)
[2021-10-19] MEDS: IRON SUCROSE COMPLEX 100 MG/5 ML VIAL IVP SCH (09:37)
[2021-10-19] MEDS: ASPIRIN 81MG CHEW TAB PO SCH (09:39)
[2021-10-19] MEDS: VANCOMYCIN 500MG+NS 100ML 100 ML IV SCH (14:28)
[2021-10-19 18:40] LABS: % IRON SATURATION 99.3 % (22-44)
[2021-10-19 19:13] LABS: HEMATOCRIT 31.4 % (36-48)
[2021-10-19] MEDS: ATORVASTATIN 40 MG TABLET PO SCH (20:39)
[2021-10-19] MEDS: 0.9%NACL 1000ML 1,000 ML IV SCH (20:39)
[2021-10-20] VITALS (7 sets, daily range): BP systolic 119–159; BP diastolic 56–96
[2021-10-20] MEDS: VANCOMYCIN 500MG+NS 100ML 100 ML IV SCH ×2 (01:01→13:16)
[2021-10-20] MEDS: ZOSYN 3.375GM +NS 50ML IV SCH ×4 (02:00→17:28)
[2021-10-20] MEDS: HYDROMORPHONE 0.5 MG SYG (0.5MG/0.5ML) IVP PRN ×5 (04:18→22:31)
[2021-10-20 05:20] LABS: HEMATOCRIT 28.4 % (36-48); MEAN CORPUSCULAR HEMOGLOBIN 28.7 pg (27.0-33.0); MEAN CORPUSCULAR HGB CONC 33.8 g/dL (32.0-36.0); MEAN CORPUSCULAR VOLUME 84.8 fL (79-99); RED BLOOD CELL COUNT(AUTO) 3.35 MIL/uL (4.00-5.50); RED CELL DISTRIBUTION WIDTH 14.5 % (11.0-15.5); WHITE BLOOD COUNT (AUTO) 5.9 K/uL (4.8-10.8)
[2021-10-20 05:32] LABS: CREATININE 0.7 mg/dL (0.5-1.5); MAGNESIUM 1.6 mg/dL (1.80-2.40); POTASSIUM 3.5 mmol/L (3.5-5.1)
[2021-10-20] MEDS: INSULIN HUMULIN R 100 UNIT/ML 3ML SQ SCH ×4 (06:18→20:47)
[2021-10-20] MEDS: INSULIN GLARGINE 100 UNITS/ML 10 ML VIAL SQ SCH (07:37)
[2021-10-20] MEDS: IRON SUCROSE COMPLEX 100 MG/5 ML VIAL IVP SCH (08:39)
[2021-10-20] MEDS: ASPIRIN 81MG CHEW TAB PO SCH (08:39)
[2021-10-20] MEDS: ATORVASTATIN 40 MG TABLET PO SCH (21:00)
[2021-10-20] MEDS ORDERED: INSULIN GLARGINE 100 UNITS/ML 10 ML VIAL SQ SCH (21:00)
[2021-10-21] MEDS: VANCOMYCIN 750MG VIAL IVPB SCH ×2 (01:09→13:48)
[2021-10-21] MEDS: ZOSYN 3.375GM +NS 50ML IV SCH ×3 (02:16→10:03)
[2021-10-21] MEDS: HYDROMORPHONE 0.5 MG SYG (0.5MG/0.5ML) IVP PRN ×5 (02:30→22:59)
[2021-10-21 04:14] VITALS: BP 135/85
[2021-10-21 04:46] LABS: HEMATOCRIT 29.3 % (36-48); MEAN CORPUSCULAR HEMOGLOBIN 27.7 pg (27.0-33.0); MEAN CORPUSCULAR HGB CONC 32.8 g/dL (32.0-36.0); MEAN CORPUSCULAR VOLUME 84.4 fL (79-99); RED BLOOD CELL COUNT(AUTO) 3.47 MIL/uL (4.00-5.50); WHITE BLOOD COUNT (AUTO) 6.4 K/uL (4.8-10.8)
[2021-10-21 05:11] LABS: CREATININE 0.6 mg/dL (0.5-1.5); MAGNESIUM 1.5 mg/dL (1.80-2.40); POTASSIUM 3.5 mmol/L (3.5-5.1)
[2021-10-21] MEDS: INSULIN HUMULIN R 100 UNIT/ML 3ML SQ SCH ×4 (06:46→21:00)
[2021-10-21 08:00] VITALS: BP 150/91
[2021-10-21] MEDS: FOLIC ACID 1 MG TABLET PO SCH (08:20)
[2021-10-21] MEDS: ASPIRIN 81MG CHEW TAB PO SCH (08:20)
[2021-10-21 12:00] VITALS: BP 160/93
[2021-10-21 16:00] VITALS: BP 152/92
[2021-10-21] MEDS: METRONIDAZOLE 500 MG TABLET PO SCH ×2 (16:28→22:57)
[2021-10-21] MEDS: CEFAZOLIN SODIUM 1 GM VIAL IVP SCH ×2 (16:28→22:57)
[2021-10-21] MEDS: ONDANSETRON 4MG INJ IVP PRN (17:46)
[2021-10-21 20:15] VITALS: BP 140/86
[2021-10-21] MEDS: ATORVASTATIN 40 MG TABLET PO SCH (21:26)
[2021-10-21] MEDS: INSULIN GLARGINE 100 UNITS/ML 10 ML VIAL SQ SCH (21:35)
[2021-10-21 23:34] VITALS: BP 154/87
[2021-10-22] VITALS (9 sets, daily range): BP systolic 115–156; BP diastolic 72–91
[2021-10-22] MEDS: HYDROMORPHONE 0.5 MG SYG (0.5MG/0.5ML) IVP PRN ×3 (04:45→20:42)
[2021-10-22] MEDS: ONDANSETRON 4MG INJ IVP PRN ×3 (04:45→20:42)
[2021-10-22] MEDS: INSULIN HUMULIN R 100 UNIT/ML 3ML SQ SCH ×4 (07:10→20:50)
[2021-10-22] MEDS: FOLIC ACID 1 MG TABLET PO SCH (08:46)
[2021-10-22] MEDS: ASPIRIN 81MG CHEW TAB PO SCH (08:46)
[2021-10-22] MEDS: METRONIDAZOLE 500 MG TABLET PO SCH ×3 (08:46→16:45)
[2021-10-22] MEDS: CEFAZOLIN SODIUM 1 GM VIAL IVP SCH ×2 (08:47→16:45)
[2021-10-22] MEDS: INSULIN GLARGINE 100 UNITS/ML 10 ML VIAL SQ SCH ×2 (09:10→20:49)
[2021-10-22] MEDS ORDERED: HYDROMORPHONE 0.5 MG SYG (0.5MG/0.5ML) ONE (13:41)
[2021-10-22] MEDS: ATORVASTATIN 40 MG TABLET PO SCH (20:42)
[2021-10-23] MEDS: CEFAZOLIN SODIUM 1 GM VIAL IVP SCH ×3 (00:16→16:02)
[2021-10-23] MEDS: METRONIDAZOLE 500 MG TABLET PO SCH ×3 (00:16→15:30)
[2021-10-23] MEDS: HYDROMORPHONE 0.5 MG SYG (0.5MG/0.5ML) IVP PRN ×4 (03:43→20:44)
[2021-10-23] MEDS: ONDANSETRON 4MG INJ IVP PRN ×2 (03:46→19:01)
[2021-10-23 04:16] VITALS: BP 150/88
[2021-10-23] MEDS: INSULIN HUMULIN R 100 UNIT/ML 3ML SQ SCH ×4 (06:33→20:26)
[2021-10-23 06:40] LABS: HEMATOCRIT 33.2 % (36-48); MEAN CORPUSCULAR HEMOGLOBIN 28.4 pg (27.0-33.0); MEAN CORPUSCULAR VOLUME 83.4 fL (79-99); RED BLOOD CELL COUNT(AUTO) 3.98 MIL/uL (4.00-5.50); RED CELL DISTRIBUTION WIDTH 13.3 % (11.0-15.5); WHITE BLOOD COUNT (AUTO) 8.6 K/uL (4.8-10.8)
[2021-10-23 06:53] LABS: ALBUMIN 1.8 g/dL (3.5-5.0); BILIRUBIN,TOTAL 0.3 mg/dL (0.2-1.0); CREATININE 0.7 mg/dL (0.5-1.5); MAGNESIUM 1.6 mg/dL (1.80-2.40); POTASSIUM 3.5 mmol/L (3.5-5.1); TOTAL PROTEIN, SERUM 7.8 g/dL (6.0-8.3)
[2021-10-23 08:00] VITALS: BP 147/86
[2021-10-23] MEDS: ASPIRIN 81MG CHEW TAB PO SCH (08:11)
[2021-10-23] MEDS: FOLIC ACID 1 MG TABLET PO SCH (08:11)
[2021-10-23] MEDS: INSULIN GLARGINE 100 UNITS/ML 10 ML VIAL SQ SCH ×2 (08:27→20:43)
[2021-10-23 11:30] VITALS: BP 116/78
[2021-10-23] MEDS ORDERED: LACTULOSE 20 GM/30 ML UDCUP ONE (15:13)
[2021-10-23 15:51] LABS: HEMOGLOBIN A1C 11.8 % (4.0-6.0)
[2021-10-23 16:00] VITALS: BP 115/80
[2021-10-23 20:23] VITALS: BP 158/91
[2021-10-23] MEDS: ATORVASTATIN 40 MG TABLET PO SCH (20:25)
[2021-10-23] MEDS: LACTULOSE 20 GM/30 ML UDCUP PO SCH (20:25)
[2021-10-23 23:42] VITALS: BP 139/78
[2021-10-24] MEDS: CEFAZOLIN SODIUM 1 GM VIAL IVP SCH ×3 (01:31→16:06)
[2021-10-24] MEDS: METRONIDAZOLE 500 MG TABLET PO SCH ×3 (01:34→16:06)
[2021-10-24] MEDS: LACTULOSE 20 GM/30 ML UDCUP PO SCH ×3 (02:00→13:07)
[2021-10-24] MEDS: ONDANSETRON 4MG INJ IVP PRN ×2 (02:30→06:56)
[2021-10-24] MEDS: HYDROMORPHONE 0.5 MG SYG (0.5MG/0.5ML) IVP PRN ×2 (02:32→09:19)
[2021-10-24 05:08] VITALS: BP 131/82
[2021-10-24] MEDS: INSULIN HUMULIN R 100 UNIT/ML 3ML SQ SCH ×2 (06:00→11:12)
[2021-10-24] MEDS: INSULIN GLARGINE 100 UNITS/ML 10 ML VIAL SQ SCH (06:28)
[2021-10-24 08:00] VITALS: BP 146/85
[2021-10-24] MEDS: ASPIRIN 81MG CHEW TAB PO SCH (09:18)
[2021-10-24] MEDS: FOLIC ACID 1 MG TABLET PO SCH (09:18)
[2021-10-24 12:00] VITALS: BP 160/91
[2021-10-24 15:46] LABS: INR 1.05 (0.85-1.15); PROTHROMBIN TIME 11.4 SEC (9.6-11.6)
[2021-10-24 15:48] LABS: PARTIAL THROMBOPLASTIN TIME 27.4 SEC (26.3-35.5)
== END 2021-10-24 17:45 | DRG 622 ==
LOC: EDH 09:08 → EDHIP 10:59 → 3AH 15:31
PROVIDERS: ADMIT Family Medicine; ATTEND Family Medicine
PROC: 0JBR0ZZ Excision of Left Foot Subcutaneous Tissue and Fascia, Open Approach (ICD-10-PCS; 2021-10-17)
PROC: 0JBQ0ZZ Excision of Right Foot Subcutaneous Tissue and Fascia, Open Approach (ICD-10-PCS; principal; 2021-10-17 20:59)
PROC: 3E0234Z Introduction of Serum, Toxoid and Vaccine into Muscle, Percutaneous Approach (ICD-10-PCS; 2021-10-18)
PROC: 30233N1 Transfusion of Nonautologous Red Blood Cells into Peripheral Vein, Percutaneous Approach (ICD-10-PCS; 2021-10-19)
PROC: 05HY33Z Insertion of Infusion Device into Upper Vein, Percutaneous Approach (ICD-10-PCS; 2021-10-24)
DX: E11.621 Type 2 diabetes mellitus with foot ulcer (principal); E43 Unspecified severe protein-calorie malnutrition; E11.52 Type 2 diabetes mellitus with diabetic peripheral angiopathy with gangrene; I96 Gangrene, not elsewhere classified; L03.115 Cellulitis of right lower limb; L03.116 Cellulitis of left lower limb; Z16.24 Resistance to multiple antibiotics; M86.9 Osteomyelitis, unspecified; E11.65 Type 2 diabetes mellitus with hyperglycemia; Z20.822 Contact with and (suspected) exposure to COVID-19; Z90.49 Acquired absence of other specified parts of digestive tract; Z83.3 Family history of diabetes mellitus; E78.5 Hyperlipidemia, unspecified; D64.9 Anemia, unspecified; L97.529 Non-pressure chronic ulcer of other part of left foot with unspecified severity; L97.519 Non-pressure chronic ulcer of other part of right foot with unspecified severity; E87.6 Hypokalemia; Z68.20 Body mass index [BMI] 20.0-20.9, adult; E11.42 Type 2 diabetes mellitus with diabetic polyneuropathy; I10 Essential (primary) hypertension; Z79.4 Long term (current) use of insulin; E11.69 Type 2 diabetes mellitus with other specified complication; Z23 Encounter for immunization
CPT/HCPCS: 36415; 36430; 71045; 73630; 73718; 73720; 80048; 80053; 80061; 80202; 82948; 83036; 83540; 83550; 83605; 83735; 83883; 84132; 84156; 84166; 84703; 85014; 85018; 85025; 85027; 85610; 85730; 86325; 86334; 86850; 86900; 86901; 86923; 87040; 87070; 87076; 87205; 87635; 90715; 93005; 93925; 97039; C1894; G0378; J0690; J1170; J1756; J1815; J1940; J2250; J2405; J2543; J3010; J3370; J3490; J7030; P9016

== ENCOUNTER 2022-11-29 15:03 | Inpatient (IN) | payer OTHER ==
[~2022-11-29] VITALS: Ht 165.1 cm; Wt 54.9 kg
[~2022-11-29 15:03] MED LIST changes: +CIPR500T10 PO; -INSU100V12 SQ; +INSU300I SQ; -MUPI22O TP; -TRAM50TA4 PO
[2022-11-29 15:52] LABS: SARS-CoV-2, RNA, NAAT NEGATIVE SARS CoV-2 (NEGATIVE)
[2022-11-29 15:55] LABS: INFLUENZA TYPE A Negative For Type A (NEGATIVE); INFLUENZA TYPE B Negative For Type B (NEGATIVE)
[2022-11-29] MEDS ORDERED: ZOSYN 3.375GM +NS 50ML IVPB ONE (18:00)
[2022-11-29] MEDS ORDERED: VANCOMYCIN KIT 1 GM/250 ML IV.KIT IV ONE (18:00)
[2022-11-29] MEDS ORDERED: MORPHINE 4 MG SYG IVP ONE (18:00)
[2022-11-29] MEDS ORDERED: ONDANSETRON 4MG INJ IVP ONE (18:00)
[2022-11-29 18:14] LABS: BASOPHILS # (AUTO) 0.02 K/uL (0.00-0.20); BASOPHILS % (AUTO) 0.2 % (0.0-5.0); IMMATURE GRANULOCYTE ABSOLUTE 0.07 K/uL (0-1); LYMPHOCYTES # (AUTO) 0.6 K/uL (1.0-4.8); LYMPHOCYTES % (AUTO) 5.4 % (21.0-51.0); MEAN CORPUSCULAR HEMOGLOBIN 27.6 pg (27.0-33.0); MEAN CORPUSCULAR HGB CONC 33.9 g/dL (32.0-36.0); MEAN CORPUSCULAR VOLUME 81.3 fL (79-99); MONOCYTES # (AUTO) 0.5 K/uL (0.1-1.0); MONOCYTES % (AUTO) 4.2 % (3.0-13.0); NEUTROPHILS # (AUTO) 9.7 K/uL (1.8-7.7); NEUTROPHILS % (AUTO) 89.6 % (40.0-77.0); PLATELET COUNT (AUTO) 199 K/uL (130-400); RED BLOOD CELL COUNT(AUTO) 2.83 MIL/uL (4.00-5.50); RED CELL DISTRIBUTION WIDTH 14.1 % (11.0-15.5); WHITE BLOOD COUNT (AUTO) 10.8 K/uL (4.8-10.8)
[2022-11-29] MEDS ORDERED: 0.9%NACL 1000ML 1,000 ML IV ONE ×2 (18:30)
[2022-11-29 18:31] LABS: ALBUMIN 2.3 g/dL (3.5-5.0); BILIRUBIN,TOTAL 0.3 mg/dL (0.2-1.0); CREATININE 1.2 mg/dL (0.5-1.5); POTASSIUM 4.7 mmol/L (3.5-5.1); TOTAL PROTEIN, SERUM 8.6 g/dL (6.0-8.3)
[2022-11-29 18:42] VITALS: TEMP 100.5
[2022-11-29] MEDS ORDERED: ACETAMINOPHEN 325 MG TAB PO ONE (19:00)
[2022-11-29] MEDS ORDERED: INSULIN HUMULIN R 100 UNIT/ML 3ML IV ONE (19:00)
[2022-11-29 19:12] LABS: ABG BASE EXCESS -4.6 mmol/L (-2.0-3.0); ABG HCO3 19.5 mmol/L (21.0-28.0); ABG OXYGEN SATURATION 96.1 % (95.0-99.0); ABG PCO2 34 mmHg (32-45); ABG PH 7.381 (7.35-7.450); PO2, ARTERIAL BG 82.4 mmHg (83.0-108.0); VENT MODE, BG ROOM AIR (ROOM AIR)
[2022-11-29] MEDS ORDERED: VANCOMYCIN PROTOCOL PER PHARMACY IV SCH (22:00)
[2022-11-29] MEDS ORDERED: GLUCAGON 1MG KIT 1 MG ML IM PRN (22:30)
[2022-11-29] MEDS ORDERED: DEXTROSE 50%-WATER 50 ML DISP.SYRIN IV PRN (22:30)
[2022-11-29] MEDS: MORPHINE 2 MG SYG IVP PRN (22:38)
[2022-11-29] MEDS: ONDANSETRON 4MG INJ IVP PRN (22:38)
[2022-11-30] VITALS (8 sets, daily range): BP systolic 108–149; BP diastolic 64–84; PULSE 74–109; RESP 17–18; O2SAT 98
[2022-11-30] MEDS ORDERED: 0.9%NACL 50ML IV SCH (02:00)
[2022-11-30] MEDS: ZOSYN 3.375GM +NS 50ML IVPB SCH ×3 (03:00→21:41)
[2022-11-30] MEDS: ONDANSETRON 4MG INJ IVP PRN ×4 (03:57→21:41)
[2022-11-30] MEDS: VANCOMYCIN 750MG VIAL IVPB SCH ×2 (06:09→21:51)
[2022-11-30] MEDS: INSULIN HUMULIN R 100 UNIT/ML 3ML SQ SCH ×4 (06:10→20:41)
[2022-11-30 08:04] LABS: BASOPHILS # (AUTO) 0.02 K/uL (0.00-0.20); BASOPHILS % (AUTO) 0.2 % (0.0-5.0); EOSINOPHILS # (AUTO) 0.02 K/uL (0.00-0.70); EOSINOPHILS % (AUTO) 0.2 % (0.0-8.0); IMMATURE GRANULOCYTE ABSOLUTE 0.03 K/uL (0-1); LYMPHOCYTES # (AUTO) 0.8 K/uL (1.0-4.8); LYMPHOCYTES % (AUTO) 8.7 % (21.0-51.0); MEAN CORPUSCULAR HEMOGLOBIN 27.4 pg (27.0-33.0); MEAN CORPUSCULAR HGB CONC 32.7 g/dL (32.0-36.0); MEAN CORPUSCULAR VOLUME 83.9 fL (79-99); MONOCYTES # (AUTO) 0.6 K/uL (0.1-1.0); NEUTROPHILS # (AUTO) 8.2 K/uL (1.8-7.7); NEUTROPHILS % (AUTO) 84.6 % (40.0-77.0); PLATELET COUNT (AUTO) 153 K/uL (130-400); RED BLOOD CELL COUNT(AUTO) 2.48 MIL/uL (4.00-5.50); RED CELL DISTRIBUTION WIDTH 14.5 % (11.0-15.5); WHITE BLOOD COUNT (AUTO) 9.7 K/uL (4.8-10.8)
[2022-11-30 08:35] LABS: ALBUMIN 1.9 g/dL (3.5-5.0); BILIRUBIN,TOTAL 0.5 mg/dL (0.2-1.0); CREATININE 1.1 mg/dL (0.5-1.5); POTASSIUM 4.1 mmol/L (3.5-5.1); TOTAL PROTEIN, SERUM 7.4 g/dL (6.0-8.3)
[2022-11-30] MEDS: MORPHINE 2 MG SYG IVP PRN ×4 (08:55→22:54)
[2022-11-30 08:58] LABS: HEMATOCRIT 20.8 % (36-48)
[2022-11-30] MEDS ORDERED: VANCOMYCIN KIT 1 GM/250 ML IV.KIT IV SCH (09:00)
[2022-12-01] VITALS (8 sets, daily range): BP systolic 113–155; BP diastolic 72–88; PULSE 92–118; RESP 18–20; O2SAT 95–98
[2022-12-01 00:49] LABS: HEMATOCRIT 24.8 % (36-48)
[2022-12-01] MEDS: ZOSYN 3.375GM +NS 50ML IVPB SCH ×3 (04:26→19:31)
[2022-12-01 05:08] LABS: BASOPHILS # (AUTO) 0.02 K/uL (0.00-0.20); BASOPHILS % (AUTO) 0.2 % (0.0-5.0); EOSINOPHILS # (AUTO) 0.02 K/uL (0.00-0.70); EOSINOPHILS % (AUTO) 0.2 % (0.0-8.0); HEMATOCRIT 24.8 % (36-48); IMMATURE GRANULOCYTE ABSOLUTE 0.04 K/uL (0-1); MEAN CORPUSCULAR HEMOGLOBIN 27.6 pg (27.0-33.0); MEAN CORPUSCULAR HGB CONC 33.1 g/dL (32.0-36.0); MEAN CORPUSCULAR VOLUME 83.5 fL (79-99); MONOCYTES # (AUTO) 0.6 K/uL (0.1-1.0); NEUTROPHILS # (AUTO) 7.2 K/uL (1.8-7.7); NEUTROPHILS % (AUTO) 81.1 % (40.0-77.0); PLATELET COUNT (AUTO) 177 K/uL (130-400); RED BLOOD CELL COUNT(AUTO) 2.97 MIL/uL (4.00-5.50); RED CELL DISTRIBUTION WIDTH 14.4 % (11.0-15.5); WHITE BLOOD COUNT (AUTO) 8.8 K/uL (4.8-10.8)
[2022-12-01 05:26] LABS: ALBUMIN 1.8 g/dL (3.5-5.0); BILIRUBIN,TOTAL 0.9 mg/dL (0.2-1.0); POTASSIUM 4.1 mmol/L (3.5-5.1); TOTAL PROTEIN, SERUM 7.2 g/dL (6.0-8.3)
[2022-12-01] MEDS: INSULIN HUMULIN R 100 UNIT/ML 3ML SQ SCH ×4 (06:30→20:25)
[2022-12-01] MEDS ORDERED: DULA0.75 SQ (06:37)
[2022-12-01] MEDS ORDERED: INSU100C14 SQ (06:37)
[2022-12-01] MEDS ORDERED: INSU100I15 SQ (06:37)
[2022-12-01] MEDS: VANCOMYCIN 750MG VIAL IVPB SCH ×2 (09:42→21:03)
[2022-12-01] MEDS: INSULIN GLARGINE 100 UNITS/ML 10 ML VIAL SQ SCH (09:50)
[2022-12-01] MEDS: ONDANSETRON 4MG INJ IVP PRN ×2 (09:53→19:31)
[2022-12-01] MEDS: MORPHINE 2 MG SYG IVP PRN (09:54)
[2022-12-02] VITALS (9 sets, daily range): BP systolic 125–152; BP diastolic 72–94; PULSE 79–109; RESP 17–20; O2SAT 93–98
[2022-12-02] MEDS: ZOSYN 3.375GM +NS 50ML IVPB SCH ×3 (04:12→19:46)
[2022-12-02 05:27] LABS: MEAN CORPUSCULAR HEMOGLOBIN 27.1 pg (27.0-33.0); MEAN CORPUSCULAR HGB CONC 32.4 g/dL (32.0-36.0); MEAN CORPUSCULAR VOLUME 83.6 fL (79-99); RED BLOOD CELL COUNT(AUTO) 2.99 MIL/uL (4.00-5.50); RED CELL DISTRIBUTION WIDTH 14.6 % (11.0-15.5); WHITE BLOOD COUNT (AUTO) 11.2 K/uL (4.8-10.8)
[2022-12-02 05:46] LABS: ALBUMIN 1.7 g/dL (3.5-5.0); BILIRUBIN,TOTAL 0.8 mg/dL (0.2-1.0); CREATININE 0.8 mg/dL (0.5-1.5); MAGNESIUM 1.9 mg/dL (1.80-2.40); POTASSIUM 3.8 mmol/L (3.5-5.1); TOTAL PROTEIN, SERUM 7.2 g/dL (6.0-8.3)
[2022-12-02] MEDS: INSULIN HUMULIN R 100 UNIT/ML 3ML SQ SCH ×4 (06:23→21:00)
[2022-12-02] MEDS: VANCOMYCIN 750MG VIAL IVPB SCH (08:43)
[2022-12-02] MEDS: INSULIN GLARGINE 100 UNITS/ML 10 ML VIAL SQ SCH (09:23)
[2022-12-02] MEDS: MORPHINE 2 MG SYG IVP PRN ×3 (10:49→23:41)
[2022-12-02] MEDS: ONDANSETRON 4MG INJ IVP PRN ×3 (10:49→23:44)
[2022-12-03] VITALS (7 sets, daily range): BP systolic 127–195; BP diastolic 72–112; PULSE 83–112; RESP 18–20; O2SAT 93–96
[2022-12-03] MEDS: ZOSYN 3.375GM +NS 50ML IVPB SCH ×3 (05:01→21:29)
[2022-12-03] MEDS: INSULIN HUMULIN R 100 UNIT/ML 3ML SQ SCH ×4 (05:56→21:00)
[2022-12-03] MEDS: INSULIN GLARGINE 100 UNITS/ML 10 ML VIAL SQ SCH (08:50)
[2022-12-03] MEDS: PANTOPRAZOLE 40 MG/VIAL IVP SCH (08:50)
[2022-12-03] MEDS: ONDANSETRON 4MG INJ IVP PRN ×2 (08:53→14:37)
[2022-12-03 11:27] LABS: HEMATOCRIT 26.1 % (36-48); MEAN CORPUSCULAR HEMOGLOBIN 27.8 pg (27.0-33.0); MEAN CORPUSCULAR HGB CONC 33.3 g/dL (32.0-36.0); MEAN CORPUSCULAR VOLUME 83.4 fL (79-99); RED BLOOD CELL COUNT(AUTO) 3.13 MIL/uL (4.00-5.50); RED CELL DISTRIBUTION WIDTH 14.7 % (11.0-15.5); WHITE BLOOD COUNT (AUTO) 9.7 K/uL (4.8-10.8)
[2022-12-03 12:06] LABS: CREATININE 0.8 mg/dL (0.5-1.5); MAGNESIUM 1.8 mg/dL (1.80-2.40); POTASSIUM 3.5 mmol/L (3.5-5.1)
[2022-12-03] MEDS: MORPHINE 2 MG SYG IVP PRN ×2 (14:43→21:33)
[2022-12-04] VITALS (8 sets, daily range): BP systolic 125–171; BP diastolic 75–96; PULSE 89–105; RESP 16–20; O2SAT 96–98
[2022-12-04] MEDS: ZOSYN 3.375GM +NS 50ML IVPB SCH ×3 (04:49→20:45)
[2022-12-04] MEDS: MORPHINE 2 MG SYG IVP PRN ×3 (05:08→20:45)
[2022-12-04] MEDS: ONDANSETRON 4MG INJ IVP PRN ×4 (05:08→20:45)
[2022-12-04 05:46] LABS: HEMATOCRIT 25.1 % (36-48); MEAN CORPUSCULAR HEMOGLOBIN 27.7 pg (27.0-33.0); MEAN CORPUSCULAR HGB CONC 33.5 g/dL (32.0-36.0); MEAN CORPUSCULAR VOLUME 82.8 fL (79-99); RED BLOOD CELL COUNT(AUTO) 3.03 MIL/uL (4.00-5.50); RED CELL DISTRIBUTION WIDTH 14.6 % (11.0-15.5); WHITE BLOOD COUNT (AUTO) 8.7 K/uL (4.8-10.8)
[2022-12-04 06:02] LABS: ALBUMIN 1.7 g/dL (3.5-5.0); BILIRUBIN,TOTAL 0.6 mg/dL (0.2-1.0); CREATININE 0.7 mg/dL (0.5-1.5); POTASSIUM 3.1 mmol/L (3.5-5.1); TOTAL PROTEIN, SERUM 7.4 g/dL (6.0-8.3)
[2022-12-04] MEDS: INSULIN HUMULIN R 100 UNIT/ML 3ML SQ SCH ×4 (06:42→20:40)
[2022-12-04] MEDS ORDERED: POTASSIUM CHLORIDE 10% ELIXIR 20 MEQ/15 ML UDCUP PO PRN (07:00)
[2022-12-04] MEDS ORDERED: POTASSIUM CHLORIDE 20MEQ/100ML 100 ML IV PRN (07:00)
[2022-12-04] MEDS: INSULIN GLARGINE 100 UNITS/ML 10 ML VIAL SQ SCH (08:41)
[2022-12-04] MEDS: LISINOPRIL 20 MG TABLET PO SCH (08:52)
[2022-12-04] MEDS: PANTOPRAZOLE 40 MG/VIAL IVP SCH (08:52)
[2022-12-04] MEDS: KCL 20 MEQ ERTAB PO PRN ×3 (08:52→15:07)
[2022-12-05] VITALS (7 sets, daily range): BP systolic 128–158; BP diastolic 74–97; PULSE 87–106; RESP 16–18; O2SAT 97–99
[2022-12-05] MEDS: ZOSYN 3.375GM +NS 50ML IVPB SCH ×3 (04:23→20:31)
[2022-12-05] MEDS: INSULIN HUMULIN R 100 UNIT/ML 3ML SQ SCH ×4 (06:53→20:02)
[2022-12-05] MEDS: ONDANSETRON 4MG INJ IVP PRN ×2 (08:16→21:40)
[2022-12-05] MEDS: PANTOPRAZOLE 40 MG/VIAL IVP SCH (08:16)
[2022-12-05] MEDS: LISINOPRIL 20 MG TABLET PO SCH (08:17)
[2022-12-05] MEDS: INSULIN GLARGINE 100 UNITS/ML 10 ML VIAL SQ SCH (08:43)
[2022-12-05] MEDS: ACETAMINOPHEN WITH CODEINE 1 TAB TAB PO PRN ×2 (08:55→21:41)
[2022-12-05] MEDS ORDERED: LISINOPRIL 20 MG TABLET PO ONE (15:30)
[2022-12-06] MEDS: ONDANSETRON 4MG INJ IVP PRN ×2 (01:23→08:07)
[2022-12-06 02:55] LABS: APPEARANCE,URINE CLEAR (CLEAR); BILIRUBIN,URINE NEGATIVE (NEGATIVE); COLOR,URINE YELLOW (YELLOW); GLUCOSE, URINE (UA) 70 mg/dL (NEGATIVE); KETONES,URINE NEGATIVE (NEGATIVE); LEUKOCYTE ESTERASE ,URINE 250 Leu/uL (NEGATIVE); NITRATE,URINE NEGATIVE (NEGATIVE); PROTEIN,URINE 30 mg/dL (NEGATIVE); UROBILINOGEN,URINE 0.2 mg/dL (0.2-1.0)
[2022-12-06 03:00] LABS: ADD UA MICROSCOPIC YES
[2022-12-06 03:05] LABS: MUCUS,URINE RARE LPF (None Seen); SQUAMOUS EPITHELIAL CELL,UR FEW /HPF (0-2); WBC,URINE 26-50 /HPF (0-1)
[2022-12-06 03:57] VITALS: BP 132/75; PULSE 83; RESP 18
[2022-12-06] MEDS: ZOSYN 3.375GM +NS 50ML IVPB SCH ×2 (05:09→13:00)
[2022-12-06] MEDS: INSULIN HUMULIN R 100 UNIT/ML 3ML SQ SCH ×2 (07:30→11:30)
[2022-12-06 08:00] VITALS: O2SAT 99
[2022-12-06 08:06] VITALS: BP 154/85; PULSE 95; RESP 18
[2022-12-06] MEDS: PANTOPRAZOLE 40 MG/VIAL IVP SCH (08:07)
[2022-12-06] MEDS: ACETAMINOPHEN WITH CODEINE 1 TAB TAB PO PRN (08:12)
[2022-12-06] MEDS: INSULIN GLARGINE 100 UNITS/ML 10 ML VIAL SQ SCH (08:15)
[2022-12-06] MEDS ORDERED: LISINOPRIL 40 MG TABLET PO SCH (09:00)
[2022-12-06 12:02] VITALS: BP 162/93; PULSE 92; RESP 18
[2022-12-06 14:37] VITALS: BP 154/91
[2022-12-06] MEDS ORDERED: HONEY 1 APPL/ML TUBE TP SCH (16:00)
== END 2022-12-06 16:10 | disposition home or self-care (01) | DRG 853 ==
LOC: EDH 15:03 → EDHIP 15:04 → 3CH 11-30 03:25
PROVIDERS: ADMIT Internal Medicine; ATTEND Internal Medicine
PROC: 0JBR0ZZ Excision of Left Foot Subcutaneous Tissue and Fascia, Open Approach (ICD-10-PCS; principal; 2022-11-30)
DX: A41.59 Other Gram-negative sepsis (principal); A48.0 Gas gangrene; E11.52 Type 2 diabetes mellitus with diabetic peripheral angiopathy with gangrene; L03.115 Cellulitis of right lower limb; L03.116 Cellulitis of left lower limb; Z20.822 Contact with and (suspected) exposure to COVID-19; M86.8X7 Other osteomyelitis, ankle and foot; E11.621 Type 2 diabetes mellitus with foot ulcer; E11.69 Type 2 diabetes mellitus with other specified complication; E11.65 Type 2 diabetes mellitus with hyperglycemia; D64.9 Anemia, unspecified; I10 Essential (primary) hypertension; K59.09 Other constipation; Z83.3 Family history of diabetes mellitus; Z90.49 Acquired absence of other specified parts of digestive tract; Z79.4 Long term (current) use of insulin
CPT/HCPCS: 36415; 36430; 36600; 73630; 73718; 73721; 80048; 80053; 80202; 81001; 82010; 82803; 82948; 83605; 83735; 84703; 85014; 85018; 85025; 85027; 86850; 86900; 86901; 86923; 87040; 87070; 87076; 87077; 87088; 87186; 87635; 87804; 93925; C9113; C9803; G0378; J1815; J2270; J2405; J2543; J3370; P9016

== ENCOUNTER 2022-12-13 15:26 | Inpatient (IN) | payer OTHER ==
[~2022-12-13] VITALS: Ht 162.6 cm; Wt 56.6 kg
[~2022-12-13 15:26] MED LIST changes: -AMOX1TAB16 PO; -CIPR500T10 PO; +DULA0.75 SQ; +INSU100C14 SQ; -INSU300I SQ
[2022-12-13 16:19] LABS: BASOPHILS # (AUTO) 0.04 K/uL (0.00-0.20); BASOPHILS % (AUTO) 0.3 % (0.0-5.0); EOSINOPHILS # (AUTO) 0.04 K/uL (0.00-0.70); EOSINOPHILS % (AUTO) 0.3 % (0.0-8.0); HEMATOCRIT 29.7 % (36-48); IMMATURE GRANULOCYTE ABSOLUTE 0.06 K/uL (0-1); LYMPHOCYTES % (AUTO) 6.6 % (21.0-51.0); MEAN CORPUSCULAR HEMOGLOBIN 27.3 pg (27.0-33.0); MEAN CORPUSCULAR HGB CONC 33.3 g/dL (32.0-36.0); MONOCYTES # (AUTO) 0.5 K/uL (0.1-1.0); MONOCYTES % (AUTO) 3.7 % (3.0-13.0); NEUTROPHILS # (AUTO) 12.9 K/uL (1.8-7.7); NEUTROPHILS % (AUTO) 88.7 % (40.0-77.0); PLATELET COUNT (AUTO) 227 K/uL (130-400); RED BLOOD CELL COUNT(AUTO) 3.62 MIL/uL (4.00-5.50); RED CELL DISTRIBUTION WIDTH 14.4 % (11.0-15.5); WHITE BLOOD COUNT (AUTO) 14.5 K/uL (4.8-10.8)
[2022-12-13 16:48] LABS: CARBON DIOXIDE 28 mmol/L (21-32); CHLORIDE 96 mmol/L (101-111); CREATININE 0.8 mg/dL (0.5-1.5); GLOMERULAR FILTR. RATE CALC 91 mL/min (>90); GLUCOSE,RANDOM 350 mg/dL (70-105); POTASSIUM 3.5 mmol/L (3.5-5.1); SODIUM SERUM 131 mmol/L (136-145); UREA NITROGEN, BLOOD 14 mg/dL (7-18)
[2022-12-13 16:58] LABS: ALBUMIN 2.4 g/dL (3.5-5.0); ASPARTATE AMINOTRANSFERASE 9 U/L (10-37); BILIRUBIN,TOTAL 0.3 mg/dL (0.2-1.0); TOTAL PROTEIN, SERUM 8.7 g/dL (6.0-8.3)
[2022-12-13 16:59] LABS: ALANINE AMINOTRANSFERASE < 6 U/L (12-78)
[2022-12-13] MEDS ORDERED: ACETAMINOPHEN 325 MG TAB PO ONE (18:30)
[2022-12-13] MEDS ORDERED: SILVER NITRATE APPLICATOR 1 SWAB TP SCH (21:30)
[2022-12-13] MEDS ORDERED: MORPHINE 2 MG SYG ONE (22:58)
[2022-12-13] MEDS ORDERED: ZOSYN 3.375GM+NS 50ML 50 ML IVPB ONE (22:58)
[2022-12-13] MEDS ORDERED: VANCOMYCIN KIT 1 GM/250 ML IV.KIT IV ONE (23:00)
[2022-12-13] MEDS ORDERED: MORPHINE 2 MG SYG IVP ONE (23:00)
[2022-12-13] MEDS ORDERED: ZOSYN 3.375GM +NS 50ML IVPB ONE (23:00)
[2022-12-14] VITALS (7 sets, daily range): BP systolic 99–147; BP diastolic 54–83; PULSE 93–107; RESP 16–20; O2SAT 98–100
[2022-12-14] MEDS: MORPHINE 2 MG SYG IVP PRN ×4 (01:25→21:06)
[2022-12-14] MEDS ORDERED: LISI20TA24 PO (02:28)
[2022-12-14] MEDS ORDERED: INSLAN SQ (02:28)
[2022-12-14 06:32] LABS: BASOPHILS # (AUTO) 0.05 K/uL (0.00-0.20); BASOPHILS % (AUTO) 0.5 % (0.0-5.0); EOSINOPHILS # (AUTO) 0.06 K/uL (0.00-0.70); EOSINOPHILS % (AUTO) 0.6 % (0.0-8.0); HEMATOCRIT 25.1 % (36-48); IMMATURE GRANULOCYTE ABSOLUTE 0.04 K/uL (0-1); LYMPHOCYTES # (AUTO) 1.2 K/uL (1.0-4.8); LYMPHOCYTES % (AUTO) 11.7 % (21.0-51.0); MEAN CORPUSCULAR HGB CONC 32.7 g/dL (32.0-36.0); MEAN CORPUSCULAR VOLUME 82.6 fL (79-99); MONOCYTES # (AUTO) 0.6 K/uL (0.1-1.0); MONOCYTES % (AUTO) 5.9 % (3.0-13.0); NEUTROPHILS % (AUTO) 80.9 % (40.0-77.0); PLATELET COUNT (AUTO) 164 K/uL (130-400); RED BLOOD CELL COUNT(AUTO) 3.04 MIL/uL (4.00-5.50); RED CELL DISTRIBUTION WIDTH 14.6 % (11.0-15.5); WHITE BLOOD COUNT (AUTO) 9.9 K/uL (4.8-10.8)
[2022-12-14 06:50] LABS: ALBUMIN 1.9 g/dL (3.5-5.0); BILIRUBIN,TOTAL 0.4 mg/dL (0.2-1.0); CREATININE 0.8 mg/dL (0.5-1.5); POTASSIUM 3.7 mmol/L (3.5-5.1); TOTAL PROTEIN, SERUM 7.5 g/dL (6.0-8.3)
[2022-12-14] MEDS ORDERED: METR-172 PO (08:54)
[2022-12-14] MEDS ORDERED: ONDA4TAB10 PO (08:54)
[2022-12-14] MEDS ORDERED: INSU100V45 SQ ×3 (08:54)
[2022-12-14] MEDS ORDERED: AMOX500C2 PO (08:54)
[2022-12-14] MEDS ORDERED: LISI40TA9 PO (08:54)
[2022-12-14] MEDS: INSULIN LISPRO 100 UNIT/ML 3ML SQ SCH ×3 (12:06→21:08)
[2022-12-15] VITALS (7 sets, daily range): BP systolic 121–149; BP diastolic 73–82; PULSE 93–109; RESP 16–20; O2SAT 98–99
[2022-12-15] MEDS: MORPHINE 2 MG SYG IVP PRN ×3 (02:07→20:02)
[2022-12-15] MEDS: INSULIN LISPRO 100 UNIT/ML 3ML SQ SCH ×4 (06:13→21:16)
[2022-12-15 06:36] LABS: CREATININE 0.8 mg/dL (0.5-1.5); POTASSIUM 3.8 mmol/L (3.5-5.1)
[2022-12-15 06:39] LABS: BASOPHILS # (AUTO) 0.05 K/uL (0.00-0.20); BASOPHILS % (AUTO) 0.6 % (0.0-5.0); EOSINOPHILS # (AUTO) 0.13 K/uL (0.00-0.70); EOSINOPHILS % (AUTO) 1.6 % (0.0-8.0); HEMATOCRIT 23.7 % (36-48); IMMATURE GRANULOCYTE ABSOLUTE 0.03 K/uL (0-1); LYMPHOCYTES # (AUTO) 1.6 K/uL (1.0-4.8); MEAN CORPUSCULAR HEMOGLOBIN 27.4 pg (27.0-33.0); MEAN CORPUSCULAR HGB CONC 32.1 g/dL (32.0-36.0); MEAN CORPUSCULAR VOLUME 85.6 fL (79-99); MONOCYTES # (AUTO) 0.5 K/uL (0.1-1.0); MONOCYTES % (AUTO) 5.8 % (3.0-13.0); NEUTROPHILS # (AUTO) 5.6 K/uL (1.8-7.7); NEUTROPHILS % (AUTO) 71.6 % (40.0-77.0); PLATELET COUNT (AUTO) 152 K/uL (130-400); RED BLOOD CELL COUNT(AUTO) 2.77 MIL/uL (4.00-5.50); RED CELL DISTRIBUTION WIDTH 14.7 % (11.0-15.5); WHITE BLOOD COUNT (AUTO) 7.9 K/uL (4.8-10.8)
[2022-12-15] MEDS: METRONIDAZOLE 500 MG TABLET PO SCH ×2 (15:51→20:02)
[2022-12-15] MEDS: AMOXICILLIN 500 MG CAPSULE PO SCH ×2 (15:51→20:26)
[2022-12-15] MEDS ORDERED: AMOXICILLIN 500 MG CAPSULE PO SCH (21:00)
[2022-12-15] MEDS ORDERED: METRONIDAZOLE 500 MG TABLET PO SCH (21:00)
[2022-12-16 00:35] VITALS: BP 106/64; PULSE 94; RESP 18
[2022-12-16 04:00] VITALS: BP 149/73; PULSE 99; RESP 18
[2022-12-16] MEDS: MORPHINE 2 MG SYG IVP PRN ×3 (05:15→20:42)
[2022-12-16] MEDS: INSULIN LISPRO 100 UNIT/ML 3ML SQ SCH ×4 (06:26→20:39)
[2022-12-16 08:00] VITALS: BP 118/70; PULSE 95; RESP 16; O2SAT 96
[2022-12-16] MEDS: AMOXICILLIN 500 MG CAPSULE PO SCH ×3 (08:36→20:36)
[2022-12-16] MEDS: METRONIDAZOLE 500 MG TABLET PO SCH ×3 (08:36→20:36)
[2022-12-16 11:54] VITALS: BP 141/82; PULSE 101; RESP 16
[2022-12-16 16:00] VITALS: BP 167/91; PULSE 110; RESP 18
[2022-12-16 19:35] VITALS: BP 145/86; PULSE 105; RESP 18
[2022-12-17 00:30] VITALS: BP 150/95; PULSE 104; RESP 18
[2022-12-17 04:20] VITALS: BP 142/88; PULSE 94; RESP 18
[2022-12-17] MEDS: ACETAMINOPHEN 325 MG TAB PO PRN (06:07)
[2022-12-17] MEDS: INSULIN LISPRO 100 UNIT/ML 3ML SQ SCH ×4 (06:15→20:53)
[2022-12-17 08:00] VITALS: BP 150/82; PULSE 96; RESP 18; O2SAT 97
[2022-12-17] MEDS: AMOXICILLIN 500 MG CAPSULE PO SCH ×3 (09:11→19:27)
[2022-12-17] MEDS: METRONIDAZOLE 500 MG TABLET PO SCH ×3 (09:11→19:27)
[2022-12-17] MEDS: MORPHINE 2 MG SYG IVP PRN ×2 (11:56→20:57)
[2022-12-17 12:00] VITALS: BP 134/86; PULSE 103; RESP 18
[2022-12-17 16:00] VITALS: BP 164/87; PULSE 99; RESP 18
[2022-12-17] MEDS ORDERED: CLONIDINE HCL 0.1 MG TABLET PO PRN (18:00)
[2022-12-17 20:00] VITALS: BP 148/90; PULSE 102; RESP 18
[2022-12-18] VITALS: BP 150/83; PULSE 97; RESP 18
[2022-12-18 04:00] VITALS: BP 167/99; PULSE 100; RESP 18
[2022-12-18 05:57] LABS: BASOPHILS # (AUTO) 0.04 K/uL (0.00-0.20); BASOPHILS % (AUTO) 0.9 % (0.0-5.0); EOSINOPHILS # (AUTO) 0.07 K/uL (0.00-0.70); EOSINOPHILS % (AUTO) 1.6 % (0.0-8.0); HEMATOCRIT 25.1 % (36-48); IMMATURE GRANULOCYTE ABSOLUTE 0.01 K/uL (0-1); LYMPHOCYTES # (AUTO) 0.9 K/uL (1.0-4.8); LYMPHOCYTES % (AUTO) 20.6 % (21.0-51.0); MEAN CORPUSCULAR HEMOGLOBIN 27.6 pg (27.0-33.0); MEAN CORPUSCULAR HGB CONC 33.1 g/dL (32.0-36.0); MEAN CORPUSCULAR VOLUME 83.4 fL (79-99); MONOCYTES # (AUTO) 0.2 K/uL (0.1-1.0); MONOCYTES % (AUTO) 4.9 % (3.0-13.0); NEUTROPHILS # (AUTO) 3.2 K/uL (1.8-7.7); NEUTROPHILS % (AUTO) 71.8 % (40.0-77.0); PLATELET COUNT (AUTO) 183 K/uL (130-400); RED BLOOD CELL COUNT(AUTO) 3.01 MIL/uL (4.00-5.50); RED CELL DISTRIBUTION WIDTH 14.4 % (11.0-15.5); WHITE BLOOD COUNT (AUTO) 4.5 K/uL (4.8-10.8)
[2022-12-18] MEDS: ACETAMINOPHEN 325 MG TAB PO PRN (06:12)
[2022-12-18] MEDS: INSULIN LISPRO 100 UNIT/ML 3ML SQ SCH ×3 (06:15→16:53)
[2022-12-18 06:16] LABS: ALBUMIN 1.8 g/dL (3.5-5.0); ASPARTATE AMINOTRANSFERASE 8 U/L (10-37); BILIRUBIN,TOTAL 0.2 mg/dL (0.2-1.0); CARBON DIOXIDE 26 mmol/L (21-32); CHLORIDE 98 mmol/L (101-111); CREATININE 0.7 mg/dL (0.5-1.5); GLOMERULAR FILTR. RATE CALC 107 mL/min (>90); GLUCOSE,RANDOM 259 mg/dL (70-105); POTASSIUM 4.1 mmol/L (3.5-5.1); SODIUM SERUM 132 mmol/L (136-145); TOTAL PROTEIN, SERUM 7.4 g/dL (6.0-8.3); UREA NITROGEN, BLOOD 12 mg/dL (7-18)
[2022-12-18 06:17] LABS: ALANINE AMINOTRANSFERASE < 6 U/L (12-78)
[2022-12-18 08:00] VITALS: BP 136/82; PULSE 102; RESP 18; O2SAT 97
[2022-12-18] MEDS: METRONIDAZOLE 500 MG TABLET PO SCH (09:18)
[2022-12-18] MEDS: AMOXICILLIN 500 MG CAPSULE PO SCH (09:18)
[2022-12-18] MEDS ORDERED: ONDANSETRON 4MG INJ IVP PRN (09:30)
[2022-12-18] MEDS: MORPHINE 2 MG SYG IVP PRN (11:20)
[2022-12-18 12:00] VITALS: BP 166/91; PULSE 105; RESP 18
[2022-12-18] MEDS ORDERED: LEVOFLOXACIN 750 MG TABLET PO SCH (13:30)
[2022-12-18] MEDS ORDERED: AMOX/CLAV 875/125MG TAB PO SCH (13:30)
[2022-12-18] MEDS ORDERED: LISINOPRIL 40 MG TABLET PO SCH (15:00)
[2022-12-18 16:00] VITALS: BP 149/84; PULSE 105; RESP 18
== END 2022-12-18 17:30 | disposition home or self-care (01) | DRG 543 ==
LOC: EDH 15:26 → EDHIP 15:27 → 3CH 12-14 02:30
PROVIDERS: ADMIT Internal Medicine; ATTEND Internal Medicine
DX: M84.475A Pathological fracture, left foot, initial encounter for fracture (principal); M86.8X7 Other osteomyelitis, ankle and foot; E11.69 Type 2 diabetes mellitus with other specified complication; E11.621 Type 2 diabetes mellitus with foot ulcer; E78.5 Hyperlipidemia, unspecified; I10 Essential (primary) hypertension; X58.XXXA Exposure to other specified factors, initial encounter; Z83.3 Family history of diabetes mellitus; Z90.49 Acquired absence of other specified parts of digestive tract; Y93.89 Activity, other specified; Y92.89 Other specified places as the place of occurrence of the external cause; Y99.8 Other external cause status
CPT/HCPCS: 36415; 73630; 73718; 80048; 80053; 82948; 83605; 85025; 87040; 87070; 87077; 87186; 93970; 99291; G0378; J1815; J2270; J2405; J2543; J3370

== ENCOUNTER 2023-09-06 14:03 | Inpatient (IN) | payer OTHER ==
[~2023-09-06] VITALS: Ht 165.1 cm; Wt 68.9 kg
[~2023-09-06 14:03] MED LIST changes: +AMOX500C2 PO; +INSLAN SQ; +INSU100V45 SQ; +LISI40TA9 PO; +ONDA-243 PO
[2023-09-06] MEDS: ACETAMINOPHEN 500 MG TABLET PO ONE (16:43)
[2023-09-06 17:04] LABS: BASOPHILS # (AUTO) 0.02 K/uL (0.00-0.20); BASOPHILS % (AUTO) 0.1 % (0.0-5.0); HEMATOCRIT 22.6 % (36-48); IMMATURE GRANULOCYTE ABSOLUTE 0.35 K/uL (0-1); LYMPHOCYTES # (AUTO) 0.8 K/uL (1.0-4.8); LYMPHOCYTES % (AUTO) 4.7 % (21.0-51.0); MEAN CORPUSCULAR HEMOGLOBIN 24.7 pg (27.0-33.0); MEAN CORPUSCULAR HGB CONC 32.7 g/dL (32.0-36.0); MEAN CORPUSCULAR VOLUME 75.6 fL (79-99); MONOCYTES # (AUTO) 0.6 K/uL (0.1-1.0); MONOCYTES % (AUTO) 3.6 % (3.0-13.0); NEUTROPHILS # (AUTO) 15.1 K/uL (1.8-7.7); NEUTROPHILS % (AUTO) 89.5 % (40.0-77.0); PLATELET COUNT (AUTO) 222 K/uL (130-400); RED BLOOD CELL COUNT(AUTO) 2.99 MIL/uL (4.00-5.50); RED CELL DISTRIBUTION WIDTH 15.3 % (11.0-15.5); WHITE BLOOD COUNT (AUTO) 16.9 K/uL (4.8-10.8)
[2023-09-06 17:34] LABS: ALBUMIN 1.9 g/dL (3.5-5.0); BILIRUBIN,TOTAL 0.5 mg/dL (0.2-1.0); CREATININE 1.2 mg/dL (0.5-1.0); POTASSIUM 4.4 mmol/L (3.5-5.1); TOTAL PROTEIN, SERUM 8.2 g/dL (6.0-8.3)
[2023-09-06] MEDS: 0.9%NACL 1000ML 1,641 ML IV ONE (18:08)
[2023-09-06] MEDS: ONDANSETRON 4MG INJ IVP ONE (18:08)
[2023-09-06] MEDS: ZOSYN 3.375GM +NS 50ML IV ONE (18:08)
[2023-09-06] MEDS: MORPHINE 2 MG SYG IVP ONE (18:08)
[2023-09-06] MEDS: INSULIN HUMULIN R 100 UNIT/ML 3ML IV ONE (18:09)
[2023-09-06 19:10] VITALS: TEMP 100.6
[2023-09-06] MEDS: VANCOMYCIN KIT 1 GM/250 ML IV.KIT IV ONE (19:35)
[2023-09-06] MEDS ORDERED: VANCOMYCIN PROTOCOL PER PHARMACY IV PRN (20:00)
[2023-09-06] MEDS ORDERED: DEXTROSE 50%-WATER 50 ML DISP.SYRIN IV PRN (20:00)
[2023-09-06] MEDS ORDERED: POTASSIUM CHLORIDE 20MEQ/100ML 100 ML IV PRN (20:00)
[2023-09-06] MEDS ORDERED: POTASSIUM CHLORIDE 10% ELIXIR 20 MEQ/15 ML UDCUP PO PRN (20:00)
[2023-09-06] MEDS ORDERED: ACETAMINOPHEN 325 MG TAB PO PRN (20:00)
[2023-09-06] MEDS ORDERED: GLUCAGON 1MG KIT 1 MG ML IM PRN (20:00)
[2023-09-06] MEDS: ZOSYN 3.375GM+NS 50ML 50 ML IV SCH (20:15)
[2023-09-06] MEDS: FAMOTIDINE 20MG VIAL IV SCH (20:18)
[2023-09-06] MEDS: 0.9%NACL 1000ML 1,000 ML IV SCH (20:18)
[2023-09-06] MEDS: INSULIN HUMULIN R 100 UNIT/ML 3ML SQ SCH (20:19)
[2023-09-06] MEDS: KETOROLAC 15MG/ML VIAL (15MG/ML) IV PRN (21:02)
[2023-09-06] MEDS: MORPHINE 2 MG SYG IVP PRN (21:37)
[2023-09-06 22:00] VITALS: BP 83/48; PULSE 69; RESP 17
[2023-09-06 22:15] VITALS: BP 94/50; PULSE 66
[2023-09-06] MEDS ORDERED: INSU100I15 SQ (22:58)
[2023-09-06] MEDS ORDERED: INSLAN SQ (22:58)
[2023-09-07] VITALS (39 sets, daily range): BP systolic 86–173; BP diastolic 54–95; PULSE 64–79; RESP 9–20; O2SAT 97–99
[2023-09-07] MEDS: ALBUMIN (HUMAN) 25% 100 ML IV STA (00:37)
[2023-09-07] MEDS: 0.9% NACL 500ML IV.SOLN 500 ML IV SCH (00:43)
[2023-09-07] MEDS: MIDODRINE HCL 5 MG TABLET ONE (00:56)
[2023-09-07] MEDS: MIDODRINE HCL 5 MG TABLET PO ONE (00:57)
[2023-09-07] MEDS: ONDANSETRON 4MG INJ IV PRN (01:55)
[2023-09-07] MEDS: NOREPINEPHRIN 4MG/NS 250ML 250 ML IV SCH (03:14)
[2023-09-07 04:09] LABS: INR 0.98 (0.85-1.15); PROTHROMBIN TIME 11.6 SEC (9.6-11.6)
[2023-09-07 04:11] LABS: PARTIAL THROMBOPLASTIN TIME 27.3 SEC (26.3-35.5)
[2023-09-07] MEDS: VANCOMYCIN 1G/250ML KIT 250 ML IV SCH (04:13)
[2023-09-07 04:14] LABS: BASOPHILS # (AUTO) 0.03 K/uL (0.00-0.20); BASOPHILS % (AUTO) 0.2 % (0.0-5.0); EOSINOPHILS # (AUTO) 0.06 K/uL (0.00-0.70); EOSINOPHILS % (AUTO) 0.3 % (0.0-8.0); IMMATURE GRANULOCYTE ABSOLUTE 0.21 K/uL (0-1); LYMPHOCYTES # (AUTO) 1.5 K/uL (1.0-4.8); LYMPHOCYTES % (AUTO) 8.9 % (21.0-51.0); MEAN CORPUSCULAR HGB CONC 31.7 g/dL (32.0-36.0); MEAN CORPUSCULAR VOLUME 78.8 fL (79-99); MONOCYTES # (AUTO) 0.9 K/uL (0.1-1.0); MONOCYTES % (AUTO) 5.4 % (3.0-13.0); NEUTROPHILS # (AUTO) 14.5 K/uL (1.8-7.7); NUCLEATED RED BLOOD CELLS 0.1 % (0.0-0.19); PLATELET COUNT (AUTO) 146 K/uL (130-400); RED CELL DISTRIBUTION WIDTH 15.4 % (11.0-15.5); WHITE BLOOD COUNT (AUTO) 17.3 K/uL (4.8-10.8)
[2023-09-07 04:35] LABS: HEMATOCRIT 20.5 % (36-48)
[2023-09-07 04:50] LABS: ALBUMIN 2.2 g/dL (3.5-5.0); BILIRUBIN,TOTAL 1.2 mg/dL (0.2-1.0); CREATININE 1.4 mg/dL (0.5-1.0); MAGNESIUM 2.2 mg/dL (1.80-2.40); POTASSIUM 3.9 mmol/L (3.5-5.1)
[2023-09-07 05:43] LABS: ERYTHROCYTE SEDIMENTATION RATE 150 MM/HR (0-20)
[2023-09-07 07:51] LABS: % IRON SATURATION 3.8 % (22-44)
[2023-09-07 08:29] LABS: FERRITIN 67 ng/mL (15-150)
[2023-09-07] MEDS ORDERED: ALBUMIN (HUMAN) 25% 50 ML IV SCH (12:00)
[2023-09-07] MEDS: ALBUMIN (HUMAN) 25% 50 ML IV SCH (12:34)
[2023-09-07 13:23] LABS: HEMATOCRIT 30.7 % (36-48)
[2023-09-07 16:44] LABS: HEMATOCRIT 27.7 % (36-48)
[2023-09-07] MEDS ORDERED: VANCOMYCIN 1G/250ML KIT 250 ML IV SCH (18:00)
[2023-09-07] MEDS: CEFEPIME HCL 2 GM VIAL IVPB SCH (18:20)
[2023-09-07] MEDS: IRON SUCROSE COMPLEX 300 MG in 0.9% NACL 250ML 250 ML IV SCH (20:33)
[2023-09-07] MEDS: PANTOPRAZOLE 40 MG/VIAL IVP SCH (20:33)
[2023-09-07 22:37] LABS: HEMATOCRIT 29.6 % (36-48)
[2023-09-08] VITALS (27 sets, daily range): BP systolic 92–160; BP diastolic 42–89; PULSE 70–84; RESP 13–20; O2SAT 98–99
[2023-09-08 05:36] LABS: ADD UA MICROSCOPIC YES; APPEARANCE,URINE TURBID (CLEAR); BILIRUBIN,URINE NEGATIVE (NEGATIVE); COLOR,URINE YELLOW (YELLOW); GLUCOSE, URINE (UA) NEGATIVE (NEGATIVE); KETONES,URINE 5 mg/dL (NEGATIVE); LEUKOCYTE ESTERASE ,URINE 500 Leu/uL (NEGATIVE); NITRATE,URINE NEGATIVE (NEGATIVE); OCCULT BLOOD,URINE MODERATE (NEGATIVE); PROTEIN,URINE 100 mg/dL (NEGATIVE); UROBILINOGEN,URINE 0.2 mg/dL (0.2-1.0)
[2023-09-08 05:39] LABS: BACTERIA,URINE FEW /HPF (None Seen); RBC,URINE TNTC /HPF (0-1); SQUAMOUS EPITHELIAL CELL,UR MANY /HPF (0-2); WBC,URINE 26-50 /HPF (0-1); YEAST,URINE BUDDING MANY /HPF (None Seen)
[2023-09-08 06:24] LABS: HEMATOCRIT 28.8 % (36-48); MEAN CORPUSCULAR HEMOGLOBIN 26.1 pg (27.0-33.0); MEAN CORPUSCULAR HGB CONC 31.9 g/dL (32.0-36.0); MEAN CORPUSCULAR VOLUME 81.6 fL (79-99); RED BLOOD CELL COUNT(AUTO) 3.53 MIL/uL (4.00-5.50); RED CELL DISTRIBUTION WIDTH 15.9 % (11.0-15.5); WHITE BLOOD COUNT (AUTO) 15.6 K/uL (4.8-10.8)
[2023-09-08 06:51] LABS: ALBUMIN 1.8 g/dL (3.5-5.0); BILIRUBIN,TOTAL 1.6 mg/dL (0.2-1.0); CREATININE 1.6 mg/dL (0.5-1.0); POTASSIUM 4.4 mmol/L (3.5-5.1); TOTAL PROTEIN, SERUM 7.4 g/dL (6.0-8.3)
[2023-09-08] MEDS ORDERED: PROPOFOL 10 MG/ML 20ML VIAL IV ONE (07:48)
[2023-09-08] MEDS ORDERED: ROCURONIUM BROMIDE 10MG/1ML 5ML VL ONE (07:48)
[2023-09-08] MEDS ORDERED: MIDAZOLAM HCL 1 MG/ML 2ML VIAL ONE (07:48)
[2023-09-08] MEDS ORDERED: FENTANYL CITRATE PF 50 MCG/1 ML 2ML VIAL ONE ×2 (07:49→07:54)
[2023-09-08] MEDS ORDERED: PHENYLEPHRINE HCL 10 MG/ML 1ML VIAL IV ONE (07:54)
[2023-09-08] MEDS ORDERED: ROPIVACAINE 0.5% 5MG/ML 30ML ONE (08:03)
[2023-09-08] MEDS ORDERED: KETAMINE 50MG/ML SYRINGE 50 MG/ML DISP.SYRIN ONE (08:03)
[2023-09-08] MEDS ORDERED: ONDANSETRON 4MG INJ ONE (08:06)
[2023-09-08] MEDS ORDERED: SUCCINYLCHOLINE CHLORIDE 20 MG/ML 10 ML VIAL ONE (08:22)
[2023-09-08] MEDS: THIAMINE HCL 100 MG TABLET PO SCH (09:00)
[2023-09-08] MEDS: Vitamin B Complex/Vit C/Folic Acid PO SCH (09:00)
[2023-09-08] MEDS: LINEZOLID 600 MG/ISO-OSM 300 ML IV SCH (09:30)
[2023-09-08] MEDS: SUGAMMADEX SODIUM 200 MG/2 ML VIAL IV ONE (09:54)
[2023-09-08] MEDS: MEPERIDINE-PF 25 MG/ML SYG ONE (10:35)
[2023-09-08] MEDS: METOCLOPRAMIDE 5 MG TABLET PO SCH (11:30)
[2023-09-08 11:47] LABS: ABG HCO3 13.5 mmol/L (21.0-28.0); ABG OXYGEN SATURATION 96.2 % (95.0-99.0); ABG PCO2 30 mmHg (32-45); ABG PH 7.266 (7.35-7.450); DEVICE COMMENT RR SANJUANA; PO2, ARTERIAL BG 93.1 mmHg (83.0-108.0); VENT MODE, BG RA (ROOM AIR)
[2023-09-08] MEDS ORDERED: COMPOUND IV MISC 1 EACH IVSOLN MISC PRN (12:00)
[2023-09-08] MEDS: SODIUM BICARB 50MEQ 50ML VIAL 50 ML ONE (12:16)
[2023-09-08] MEDS: [UNRECOGNIZED DRUG - OTHER] IVP SCH (12:30)
[2023-09-08] MEDS: SODIUM BICARB 50MEQ 50ML VIAL IV ONE (12:30)
[2023-09-08] MEDS: SODIUM BICARB IVP SCH (12:30)
[2023-09-08 17:09] LABS: ABG BASE EXCESS -8.1 mmol/L (-2.0-3.0); ABG HCO3 15.6 mmol/L (21.0-28.0); ABG OXYGEN SATURATION 97.3 % (95.0-99.0); ABG PCO2 28 mmHg (32-45); ABG PH 7.362 (7.35-7.450); DEVICE COMMENT RR SAN JUANA; PO2, ARTERIAL BG 97.2 mmHg (83.0-108.0); VENT MODE, BG RA (ROOM AIR)
[2023-09-08] MEDS ORDERED: VANCOMYCIN 1G/250ML KIT 250 ML IV SCH (18:00)
[2023-09-09] VITALS (7 sets, daily range): BP systolic 139–155; BP diastolic 73–86; PULSE 79–88; RESP 16–18; O2SAT 97
[2023-09-09 05:10] LABS: ABG BASE EXCESS -2.8 mmol/L (-2.0-3.0); ABG HCO3 19.9 mmol/L (21.0-28.0); ABG OXYGEN SATURATION 93.9 % (95.0-99.0); ABG PCO2 29 mmHg (32-45); ABG PH 7.449 (7.35-7.450); DEVICE COMMENT RR RN DAN; PO2, ARTERIAL BG 64.8 mmHg (83.0-108.0); VENT MODE, BG RA (ROOM AIR)
[2023-09-09 05:37] LABS: HEMATOCRIT 24.2 % (36-48); MEAN CORPUSCULAR HEMOGLOBIN 25.9 pg (27.0-33.0); MEAN CORPUSCULAR HGB CONC 32.2 g/dL (32.0-36.0); MEAN CORPUSCULAR VOLUME 80.4 fL (79-99); NUCLEATED RED BLOOD CELLS 0.2 % (0.0-0.19); RED BLOOD CELL COUNT(AUTO) 3.01 MIL/uL (4.00-5.50); RED CELL DISTRIBUTION WIDTH 16.5 % (11.0-15.5); WHITE BLOOD COUNT (AUTO) 8.3 K/uL (4.8-10.8)
[2023-09-09 05:55] LABS: ALBUMIN 1.5 g/dL (3.5-5.0); BILIRUBIN,TOTAL 0.6 mg/dL (0.2-1.0); CREATININE 1.3 mg/dL (0.5-1.0); MAGNESIUM 1.8 mg/dL (1.80-2.40); POTASSIUM 3.7 mmol/L (3.5-5.1); TOTAL PROTEIN, SERUM 6.5 g/dL (6.0-8.3)
[2023-09-09] MEDS: ACETAMINOPHEN 325 MG TAB PO PRN (06:06)
[2023-09-09] MEDS: POLYETHYLENE GLYCOL 3350 17 GM POWD.PACK PO SCH (08:51)
[2023-09-09] MEDS: 0.9%NACL 10ML VIAL IV SCH (08:51)
[2023-09-09] MEDS: MAGNESIUM 2GM PREMIX 50ML 50 ML IV PRN (08:52)
[2023-09-09] MEDS: HYDROCODONE/ACETAMINOPHEN 5/325 MG TAB PO PRN (15:01)
[2023-09-09] MEDS: GABAPENTIN 100 MG CAPSULE PO SCH (20:47)
[2023-09-09] MEDS: ALPRAZOLAM 0.5 MG TABLET PO PRN (21:00)
[2023-09-10 04:28] VITALS: BP 150/83; PULSE 84; RESP 17
[2023-09-10 05:22] LABS: BASOPHILS # (AUTO) 0.02 K/uL (0.00-0.20); BASOPHILS % (AUTO) 0.3 % (0.0-5.0); EOSINOPHILS # (AUTO) 0.06 K/uL (0.00-0.70); EOSINOPHILS % (AUTO) 0.8 % (0.0-8.0); HEMATOCRIT 25.9 % (36-48); IMMATURE GRANULOCYTE ABSOLUTE 0.13 K/uL (0-1); LYMPHOCYTES # (AUTO) 1.2 K/uL (1.0-4.8); LYMPHOCYTES % (AUTO) 17.2 % (21.0-51.0); MEAN CORPUSCULAR HEMOGLOBIN 26.3 pg (27.0-33.0); MEAN CORPUSCULAR HGB CONC 32.4 g/dL (32.0-36.0); MEAN CORPUSCULAR VOLUME 80.9 fL (79-99); MONOCYTES # (AUTO) 0.5 K/uL (0.1-1.0); MONOCYTES % (AUTO) 6.8 % (3.0-13.0); NEUTROPHILS # (AUTO) 5.2 K/uL (1.8-7.7); NEUTROPHILS % (AUTO) 73.1 % (40.0-77.0); NUCLEATED RED BLOOD CELLS 0.3 % (0.0-0.19); PLATELET COUNT (AUTO) 245 K/uL (130-400); RED CELL DISTRIBUTION WIDTH 16.2 % (11.0-15.5); WHITE BLOOD COUNT (AUTO) 7.1 K/uL (4.8-10.8)
[2023-09-10 05:47] LABS: ALBUMIN 1.5 g/dL (3.5-5.0); BILIRUBIN,TOTAL 0.5 mg/dL (0.2-1.0); CREATININE 0.8 mg/dL (0.5-1.0); MAGNESIUM 2.4 mg/dL (1.80-2.40); POTASSIUM 3.4 mmol/L (3.5-5.1); TOTAL PROTEIN, SERUM 6.7 g/dL (6.0-8.3)
[2023-09-10] MEDS: KCL 20 MEQ ERTAB PO PRN (06:20)
[2023-09-10 07:50] VITALS: BP 145/73; PULSE 91; RESP 17
[2023-09-10 08:00] VITALS: O2SAT 96
[2023-09-10 12:00] VITALS: BP 158/94; PULSE 104; RESP 18
[2023-09-10 16:00] VITALS: BP 161/87; PULSE 100; RESP 18
[2023-09-10 16:41] LABS: HEMOGLOBIN A1C 12.7 % (4.0-6.0)
[2023-09-10 20:00] VITALS: BP 152/91; PULSE 98; RESP 18; O2SAT 96
[2023-09-10] MEDS: SENNOSIDES 8.6 MG TABLET PO SCH (20:38)
[2023-09-11] VITALS: BP 148/79; PULSE 90; RESP 17
[2023-09-11 04:00] VITALS: BP 146/81; PULSE 90; RESP 17
[2023-09-11 04:10] LABS: BASOPHILS # (AUTO) 0.02 K/uL (0.00-0.20); BASOPHILS % (AUTO) 0.3 % (0.0-5.0); EOSINOPHILS # (AUTO) 0.07 K/uL (0.00-0.70); EOSINOPHILS % (AUTO) 0.9 % (0.0-8.0); HEMATOCRIT 26.2 % (36-48); IMMATURE GRANULOCYTE ABSOLUTE 0.13 K/uL (0-1); LYMPHOCYTES # (AUTO) 1.4 K/uL (1.0-4.8); LYMPHOCYTES % (AUTO) 18.6 % (21.0-51.0); MEAN CORPUSCULAR HEMOGLOBIN 25.7 pg (27.0-33.0); MEAN CORPUSCULAR HGB CONC 31.7 g/dL (32.0-36.0); MEAN CORPUSCULAR VOLUME 81.1 fL (79-99); MONOCYTES # (AUTO) 0.6 K/uL (0.1-1.0); MONOCYTES % (AUTO) 7.1 % (3.0-13.0); NEUTROPHILS # (AUTO) 5.6 K/uL (1.8-7.7); NEUTROPHILS % (AUTO) 71.4 % (40.0-77.0); NUCLEATED RED BLOOD CELLS 0.3 % (0.0-0.19); PLATELET COUNT (AUTO) 274 K/uL (130-400); RED BLOOD CELL COUNT(AUTO) 3.23 MIL/uL (4.00-5.50); RED CELL DISTRIBUTION WIDTH 16.7 % (11.0-15.5); WHITE BLOOD COUNT (AUTO) 7.8 K/uL (4.8-10.8)
[2023-09-11 04:35] LABS: ALBUMIN 1.5 g/dL (3.5-5.0); BILIRUBIN,TOTAL 0.3 mg/dL (0.2-1.0); CREATININE 0.8 mg/dL (0.5-1.0); POTASSIUM 3.5 mmol/L (3.5-5.1)
[2023-09-11 07:05] VITALS: BP 163/91; PULSE 94; RESP 18
[2023-09-11 07:52] VITALS: O2SAT 96
[2023-09-11] MEDS ORDERED: GABA100C PO (09:22)
[2023-09-11] MEDS ORDERED: ACET-2079 PO (09:24)
[2023-09-11] MEDS: EPOETIN ALFA-EPBX (NON-ESRD) 10,000 UNIT/ML VIAL SQ ONE (11:07)
[2023-09-11 11:41] VITALS: BP 162/89; PULSE 96; RESP 18
== END 2023-09-11 12:35 | disposition home or self-care (01) | DRG 853 ==
LOC: EDH 14:03 → EDHIP 14:04 → 4BH 22:00 → 2BH 09-07 02:22 → 2CH 09-07 16:33 → 2DH 09-07 22:06 → 4CH 09-08 17:11
PROVIDERS: ADMIT Internal Medicine; ATTEND Internal Medicine
PROC: 30233N1 Transfusion of Nonautologous Red Blood Cells into Peripheral Vein, Percutaneous Approach (ICD-10-PCS; 2023-09-07)
PROC: 02HV33Z Insertion of Infusion Device into Superior Vena Cava, Percutaneous Approach (ICD-10-PCS; 2023-09-08)
PROC: B548ZZA Ultrasonography of Superior Vena Cava, Guidance (ICD-10-PCS; 2023-09-08)
PROC: 0Y6J0Z3 Detachment at Left Lower Leg, Low, Open Approach (ICD-10-PCS; principal; 2023-09-08 08:00)
DX: A41.9 Sepsis, unspecified organism (principal); A48.0 Gas gangrene; E43 Unspecified severe protein-calorie malnutrition; R65.21 Severe sepsis with septic shock; N17.9 Acute kidney failure, unspecified; L97.429 Non-pressure chronic ulcer of left heel and midfoot with unspecified severity; E11.52 Type 2 diabetes mellitus with diabetic peripheral angiopathy with gangrene; M86.8X7 Other osteomyelitis, ankle and foot; N39.0 Urinary tract infection, site not specified; E87.21 Acute metabolic acidosis; N18.9 Chronic kidney disease, unspecified; L97.529 Non-pressure chronic ulcer of other part of left foot with unspecified severity; I12.9 Hypertensive chronic kidney disease with stage 1 through stage 4 chronic kidney disease, or unspecified chronic kidney disease; E11.621 Type 2 diabetes mellitus with foot ulcer; E11.22 Type 2 diabetes mellitus with diabetic chronic kidney disease; E11.69 Type 2 diabetes mellitus with other specified complication; D64.9 Anemia, unspecified; E87.6 Hypokalemia; E78.00 Pure hypercholesterolemia, unspecified; E11.65 Type 2 diabetes mellitus with hyperglycemia; Z79.4 Long term (current) use of insulin; Z82.49 Family history of ischemic heart disease and other diseases of the circulatory system; Z83.3 Family history of diabetes mellitus; Z90.49 Acquired absence of other specified parts of digestive tract; Z91.199 Patient's noncompliance with other medical treatment and regimen due to unspecified reason
CPT/HCPCS: 36415; 36569; 36600; 71045; 73630; 73721; 76700; 80053; 80061; 80202; 81001; 82010; 82270; 82306; 82550; 82607; 82728; 82803; 82948; 83036; 83540; 83550; 83605; 83735; 84145; 84484; 85014; 85018; 85025; 85027; 85610; 85651; 85730; 86140; 86850; 86900; 86901; 86923; 87040; 87070; 87076; 87077; 87088; 87186; 88307; 88311; 93005; 93925; 93970; C1894; C9113; G0378; J0330; J0692; J1756; J1815; J1885; J2020; J2175; J2250; J2270; J2371; J2405; J2543; J2704; J2795; J3010; J3370; J3475; J3490; J7030; J7050; P9016; P9046; P9047; A4222; A4223; A4452; A4600; A4649; A6219; A6223; A6446; A6450; Q5106

== ENCOUNTER 2023-09-15 13:07 | Inpatient (IN) | payer OTHER ==
[~2023-09-15] VITALS: Ht 165.1 cm; Wt 61.6 kg
[~2023-09-15 13:07] MED LIST changes: +ACET-2079 PO; -AMOX500C2 PO; -DULA0.75 SQ; +GABA100C PO; -INSU100C14 SQ; -INSU100V45 SQ; -LISI40TA9 PO; -ONDA-243 PO
[2023-09-15] MEDS: HYDROCODONE/ACETAMINOPHEN 10/325 MG TAB PO ONE (16:30)
[2023-09-15 17:18] LABS: BASOPHILS # (AUTO) 0.04 K/uL (0.00-0.20); BASOPHILS % (AUTO) 0.4 % (0.0-5.0); EOSINOPHILS # (AUTO) 0.05 K/uL (0.00-0.70); EOSINOPHILS % (AUTO) 0.5 % (0.0-8.0); HEMATOCRIT 27.6 % (36-48); IMMATURE GRANULOCYTE ABSOLUTE 0.07 K/uL (0-1); LYMPHOCYTES # (AUTO) 1.1 K/uL (1.0-4.8); MEAN CORPUSCULAR HEMOGLOBIN 26.3 pg (27.0-33.0); MEAN CORPUSCULAR HGB CONC 32.2 g/dL (32.0-36.0); MEAN CORPUSCULAR VOLUME 81.7 fL (79-99); MONOCYTES # (AUTO) 0.3 K/uL (0.1-1.0); MONOCYTES % (AUTO) 3.2 % (3.0-13.0); NEUTROPHILS # (AUTO) 7.7 K/uL (1.8-7.7); NEUTROPHILS % (AUTO) 83.1 % (40.0-77.0); NUCLEATED RED BLOOD CELLS 0.2 % (0.0-0.19); PLATELET COUNT (AUTO) 238 K/uL (130-400); RED BLOOD CELL COUNT(AUTO) 3.38 MIL/uL (4.00-5.50); RED CELL DISTRIBUTION WIDTH 18.8 % (11.0-15.5); WHITE BLOOD COUNT (AUTO) 9.2 K/uL (4.8-10.8)
[2023-09-15] MEDS: MORPHINE 4 MG SYG IVP ONE (17:26)
[2023-09-15] MEDS: ONDANSETRON 4MG INJ IVP ONE (17:26)
[2023-09-15 17:30] LABS: CREATININE 0.7 mg/dL (0.5-1.0); POTASSIUM 4.8 mmol/L (3.5-5.1)
[2023-09-15] MEDS ORDERED: GLUCAGON 1MG KIT 1 MG ML IM PRN (20:00)
[2023-09-15] MEDS ORDERED: NITROGLYCERIN 0.4 MG SL TAB SL PRN (20:00)
[2023-09-15] MEDS ORDERED: POTASSIUM CHLORIDE 10MEQ/100ML 100 ML IV PRN (20:00)
[2023-09-15] MEDS ORDERED: MAG/ALUM/SIMETH 30 ML UDCUP PO PRN (20:00)
[2023-09-15] MEDS ORDERED: LACTULOSE 20 GM/30 ML UDCUP PO PRN (20:00)
[2023-09-15] MEDS ORDERED: DiphenhydrAMINE HCL 50 MG/ML VIAL IV PRN (20:00)
[2023-09-15] MEDS ORDERED: KCL 20 MEQ ERTAB PO PRN (20:00)
[2023-09-15] MEDS ORDERED: FAMOTIDINE 20MG VIAL IV PRN (20:00)
[2023-09-15] MEDS ORDERED: DEXTROSE 50%-WATER 50 ML DISP.SYRIN IV PRN (20:00)
[2023-09-15] MEDS ORDERED: POTASSIUM CHLORIDE 10% ELIXIR 20 MEQ/15 ML UDCUP PO PRN (20:00)
[2023-09-15] MEDS ORDERED: GUAIFENESIN-DM 200/20 MG 10 ML PO PRN (20:00)
[2023-09-15] MEDS ORDERED: ACETAMINOPHEN 325 MG TAB PO PRN ×3 (20:00)
[2023-09-15] MEDS: 0.9%NACL 1000ML 1,000 ML IV ONE (20:45)
[2023-09-15] MEDS: KETOROLAC 15MG/ML VIAL (15MG/ML) IV PRN (20:45)
[2023-09-15] MEDS: INSULIN HUMULIN R 100 UNIT/ML 3ML IV ONE (20:53)
[2023-09-15] MEDS: HYDROMORPHONE 0.5 MG SYG (0.5MG/0.5ML) IVP ONE (21:13)
[2023-09-15 22:25] VITALS: BP 155/84; PULSE 95; RESP 16
[2023-09-15] MEDS: HEPARIN 5,000 UNIT VIAL SQ SCH (22:55)
[2023-09-15] MEDS: INSULIN HUMULIN R 100 UNIT/ML 3ML SQ SCH (22:55)
[2023-09-15] MEDS: FAMOTIDINE 20MG VIAL IV SCH (22:55)
[2023-09-15 23:00] VITALS: O2SAT 98
[2023-09-16] VITALS (7 sets, daily range): BP systolic 118–163; BP diastolic 66–100; PULSE 86–107; RESP 16–18; O2SAT 95–98
[2023-09-16] MEDS: HYDROCODONE/ACETAMINOPHEN 10/325 MG TAB PO PRN (00:44)
[2023-09-16] MEDS: 0.9%NACL 1000ML 1,000 ML IV SCH (00:44)
[2023-09-16 04:35] LABS: BASOPHILS # (AUTO) 0.03 K/uL (0.00-0.20); BASOPHILS % (AUTO) 0.4 % (0.0-5.0); EOSINOPHILS # (AUTO) 0.09 K/uL (0.00-0.70); EOSINOPHILS % (AUTO) 1.3 % (0.0-8.0); HEMATOCRIT 24.8 % (36-48); IMMATURE GRANULOCYTE ABSOLUTE 0.04 K/uL (0-1); LYMPHOCYTES # (AUTO) 1.5 K/uL (1.0-4.8); LYMPHOCYTES % (AUTO) 22.2 % (21.0-51.0); MEAN CORPUSCULAR HEMOGLOBIN 26.6 pg (27.0-33.0); MEAN CORPUSCULAR VOLUME 85.8 fL (79-99); MONOCYTES # (AUTO) 0.4 K/uL (0.1-1.0); MONOCYTES % (AUTO) 5.5 % (3.0-13.0); NEUTROPHILS # (AUTO) 4.7 K/uL (1.8-7.7); PLATELET COUNT (AUTO) 197 K/uL (130-400); RED BLOOD CELL COUNT(AUTO) 2.89 MIL/uL (4.00-5.50); RED CELL DISTRIBUTION WIDTH 18.6 % (11.0-15.5); WHITE BLOOD COUNT (AUTO) 6.8 K/uL (4.8-10.8)
[2023-09-16 05:03] LABS: ALBUMIN 1.8 g/dL (3.5-5.0); BILIRUBIN,DIRECT 0.1 mg/dL (0.0-0.3); BILIRUBIN,TOTAL 0.3 mg/dL (0.2-1.0); CREATININE 0.7 mg/dL (0.5-1.0); MAGNESIUM 1.5 mg/dL (1.80-2.40); POTASSIUM 4.2 mmol/L (3.5-5.1); TOTAL PROTEIN, SERUM 7.2 g/dL (6.0-8.3)
[2023-09-16] MEDS: ONDANSETRON 4MG INJ IV PRN (15:48)
[2023-09-16] MEDS: HYDRALAZINE 20MG/ML VIAL IV PRN (17:55)
[2023-09-17] VITALS (7 sets, daily range): BP systolic 129–166; BP diastolic 73–95; PULSE 96–102; RESP 14–19; O2SAT 96–100
[2023-09-17 04:10] LABS: BASOPHILS # (AUTO) 0.02 K/uL (0.00-0.20); BASOPHILS % (AUTO) 0.4 % (0.0-5.0); EOSINOPHILS # (AUTO) 0.05 K/uL (0.00-0.70); EOSINOPHILS % (AUTO) 0.9 % (0.0-8.0); IMMATURE GRANULOCYTE ABSOLUTE 0.04 K/uL (0-1); LYMPHOCYTES # (AUTO) 1.3 K/uL (1.0-4.8); LYMPHOCYTES % (AUTO) 23.8 % (21.0-51.0); MEAN CORPUSCULAR HEMOGLOBIN 26.6 pg (27.0-33.0); MEAN CORPUSCULAR HGB CONC 30.8 g/dL (32.0-36.0); MEAN CORPUSCULAR VOLUME 86.4 fL (79-99); MONOCYTES # (AUTO) 0.3 K/uL (0.1-1.0); MONOCYTES % (AUTO) 5.1 % (3.0-13.0); NEUTROPHILS # (AUTO) 3.9 K/uL (1.8-7.7); NEUTROPHILS % (AUTO) 69.1 % (40.0-77.0); PLATELET COUNT (AUTO) 207 K/uL (130-400); RED BLOOD CELL COUNT(AUTO) 3.01 MIL/uL (4.00-5.50); RED CELL DISTRIBUTION WIDTH 19.4 % (11.0-15.5); WHITE BLOOD COUNT (AUTO) 5.6 K/uL (4.8-10.8)
[2023-09-17 04:53] LABS: BILIRUBIN,TOTAL 0.3 mg/dL (0.2-1.0); CREATININE 1.1 mg/dL (0.5-1.0); TOTAL PROTEIN, SERUM 7.4 g/dL (6.0-8.3)
[2023-09-17 05:42] LABS: B-TYPE NATRIURETIC PEPTIDE 373 pg/mL (0-100)
[2023-09-17] MEDS ORDERED: LACE ASSESSMENT (SCORE > 11) MISC SCH (14:00)
[2023-09-17] MEDS: ZOLPIDEM TARTRATE 5 MG TAB PO PRN (20:27)
[2023-09-18] VITALS (7 sets, daily range): BP systolic 157–169; BP diastolic 83–98; PULSE 90–107; RESP 17–19; O2SAT 96–99
[2023-09-19] VITALS (9 sets, daily range): BP systolic 138–191; BP diastolic 82–104; PULSE 89–100; RESP 17–19; O2SAT 95–98
[2023-09-19 06:01] LABS: HEMATOCRIT 26.7 % (36-48); MEAN CORPUSCULAR HEMOGLOBIN 26.6 pg (27.0-33.0); MEAN CORPUSCULAR HGB CONC 30.3 g/dL (32.0-36.0); MEAN CORPUSCULAR VOLUME 87.8 fL (79-99); RED BLOOD CELL COUNT(AUTO) 3.04 MIL/uL (4.00-5.50); RED CELL DISTRIBUTION WIDTH 19.4 % (11.0-15.5); WHITE BLOOD COUNT (AUTO) 5.4 K/uL (4.8-10.8)
[2023-09-19 06:09] LABS: CREATININE 0.8 mg/dL (0.5-1.0)
[2023-09-19] MEDS: DULOXETINE HCL 30 MG CAP PO ONE (12:08)
[2023-09-19] MEDS: KETOROLAC 15MG/ML VIAL (15MG/ML) IV PRN (22:30)
[2023-09-20] VITALS (7 sets, daily range): BP systolic 128–167; BP diastolic 72–100; PULSE 83–111; RESP 14–18; O2SAT 95–98
[2023-09-20] MEDS ORDERED: HYDRALAZINE 20MG/ML VIAL IV PRN (05:00)
[2023-09-20] MEDS: DULOXETINE HCL 30 MG CAP PO SCH (09:20)
[2023-09-20 10:50] LABS: HEMATOCRIT 25.4 % (36-48); MEAN CORPUSCULAR HEMOGLOBIN 26.7 pg (27.0-33.0); MEAN CORPUSCULAR HGB CONC 31.5 g/dL (32.0-36.0); MEAN CORPUSCULAR VOLUME 84.7 fL (79-99); RED CELL DISTRIBUTION WIDTH 19.5 % (11.0-15.5); WHITE BLOOD COUNT (AUTO) 6.4 K/uL (4.8-10.8)
[2023-09-20 11:00] LABS: CREATININE 0.7 mg/dL (0.5-1.0); POTASSIUM 4.2 mmol/L (3.5-5.1)
[2023-09-20 11:05] LABS: ALBUMIN 2.2 g/dL (3.5-5.0); BILIRUBIN,TOTAL 0.4 mg/dL (0.2-1.0); TOTAL PROTEIN, SERUM 7.8 g/dL (6.0-8.3)
[2023-09-20] MEDS: LISINOPRIL 5 MG TABLET PO SCH (21:06)
[2023-09-20] MEDS: ALPRAZOLAM 0.25 MG TABLET PO PRN (21:06)
[2023-09-20] MEDS: PROMETHAZINE HCL 25 MG/ML 1ML AMPULE IM ONE (21:59)
[2023-09-21] VITALS (7 sets, daily range): BP systolic 132–161; BP diastolic 74–99; PULSE 98–107; RESP 14–20; O2SAT 95–97
[2023-09-21 04:05] LABS: BASOPHILS # (AUTO) 0.05 K/uL (0.00-0.20); BASOPHILS % (AUTO) 0.9 % (0.0-5.0); EOSINOPHILS # (AUTO) 0.03 K/uL (0.00-0.70); EOSINOPHILS % (AUTO) 0.6 % (0.0-8.0); HEMATOCRIT 25.3 % (36-48); IMMATURE GRANULOCYTE ABSOLUTE 0.02 K/uL (0-1); LYMPHOCYTES # (AUTO) 1.1 K/uL (1.0-4.8); LYMPHOCYTES % (AUTO) 21.1 % (21.0-51.0); MEAN CORPUSCULAR HEMOGLOBIN 26.9 pg (27.0-33.0); MEAN CORPUSCULAR HGB CONC 30.8 g/dL (32.0-36.0); MEAN CORPUSCULAR VOLUME 87.2 fL (79-99); MONOCYTES # (AUTO) 0.3 K/uL (0.1-1.0); MONOCYTES % (AUTO) 5.6 % (3.0-13.0); NEUTROPHILS # (AUTO) 3.8 K/uL (1.8-7.7); NEUTROPHILS % (AUTO) 71.4 % (40.0-77.0); PLATELET COUNT (AUTO) 142 K/uL (130-400); RED CELL DISTRIBUTION WIDTH 19.8 % (11.0-15.5); WHITE BLOOD COUNT (AUTO) 5.4 K/uL (4.8-10.8)
[2023-09-21 04:30] LABS: BILIRUBIN,TOTAL 0.4 mg/dL (0.2-1.0); CREATININE 0.8 mg/dL (0.5-1.0); POTASSIUM 3.8 mmol/L (3.5-5.1); TOTAL PROTEIN, SERUM 7.2 g/dL (6.0-8.3)
[2023-09-21] MEDS: HYDROCODONE/ACETAMINOPHEN 10/325 MG TAB PO PRN (15:40)
[2023-09-21] MEDS: METOCLOPRAMIDE 5 MG TABLET PO SCH (17:06)
[2023-09-21] MEDS: MIRTAZAPINE 15 MG TABLET PO SCH (20:48)
[2023-09-21] MEDS: ALPRAZOLAM 1 MG TAB PO SCH (20:48)
[2023-09-22] VITALS (7 sets, daily range): BP systolic 114–163; BP diastolic 67–94; PULSE 80–96; RESP 16–18; O2SAT 97
[2023-09-22 04:47] LABS: BASOPHILS # (AUTO) 0.03 K/uL (0.00-0.20); BASOPHILS % (AUTO) 0.7 % (0.0-5.0); EOSINOPHILS # (AUTO) 0.08 K/uL (0.00-0.70); IMMATURE GRANULOCYTE ABSOLUTE 0.01 K/uL (0-1); LYMPHOCYTES # (AUTO) 1.3 K/uL (1.0-4.8); LYMPHOCYTES % (AUTO) 30.8 % (21.0-51.0); MEAN CORPUSCULAR HEMOGLOBIN 27.1 pg (27.0-33.0); MEAN CORPUSCULAR HGB CONC 30.8 g/dL (32.0-36.0); MONOCYTES # (AUTO) 0.3 K/uL (0.1-1.0); MONOCYTES % (AUTO) 8.3 % (3.0-13.0); NEUTROPHILS # (AUTO) 2.4 K/uL (1.8-7.7); PLATELET COUNT (AUTO) 134 K/uL (130-400); RED BLOOD CELL COUNT(AUTO) 2.84 MIL/uL (4.00-5.50); RED CELL DISTRIBUTION WIDTH 19.9 % (11.0-15.5); WHITE BLOOD COUNT (AUTO) 4.1 K/uL (4.8-10.8)
[2023-09-22 04:57] LABS: CREATININE 0.8 mg/dL (0.5-1.0); POTASSIUM 3.5 mmol/L (3.5-5.1)
[2023-09-22] MEDS: POTASSIUM CHLORIDE 10MEQ SR TAB PO PRN (05:21)
[2023-09-22] MEDS: FLUOXETINE HCL 10 MG CAPSULE PO SCH (08:33)
[2023-09-22] MEDS: INSULIN HUMULIN R 100 UNIT/ML 3ML SQ SCH (20:37)
[2023-09-23] VITALS: BP 147/82; PULSE 92; RESP 19
[2023-09-23 04:00] VITALS: BP 139/78; PULSE 87; RESP 18
[2023-09-23 06:23] LABS: HEMATOCRIT 27.6 % (36-48); MEAN CORPUSCULAR HEMOGLOBIN 27.1 pg (27.0-33.0); MEAN CORPUSCULAR HGB CONC 29.7 g/dL (32.0-36.0); MEAN CORPUSCULAR VOLUME 91.1 fL (79-99); PLATELET COUNT (AUTO) 137 K/uL (130-400); RED BLOOD CELL COUNT(AUTO) 3.03 MIL/uL (4.00-5.50); RED CELL DISTRIBUTION WIDTH 20.6 % (11.0-15.5); WHITE BLOOD COUNT (AUTO) 4.9 K/uL (4.8-10.8)
[2023-09-23 06:38] LABS: ALBUMIN 2.1 g/dL (3.5-5.0); BILIRUBIN,TOTAL 0.4 mg/dL (0.2-1.0); CREATININE 0.8 mg/dL (0.5-1.0); POTASSIUM 3.6 mmol/L (3.5-5.1); TOTAL PROTEIN, SERUM 7.3 g/dL (6.0-8.3)
[2023-09-23 08:00] VITALS: BP 161/90; PULSE 91; RESP 20; O2SAT 97
[2023-09-23 12:00] VITALS: BP 162/89; PULSE 94; RESP 20
[2023-09-23 16:00] VITALS: BP 158/84; PULSE 113; RESP 20
[2023-09-23 20:00] VITALS: BP 170/89; PULSE 113; RESP 17; O2SAT 94
[2023-09-24 03:27] VITALS: BP 152/81; PULSE 104; RESP 17
[2023-09-24 04:00] VITALS: BP 154/85; PULSE 91; RESP 18
[2023-09-24 08:00] VITALS: BP 179/103; PULSE 95; RESP 20
[2023-09-24] MEDS: LISINOPRIL 10 MG TABLET PO SCH (09:31)
[2023-09-24 12:00] VITALS: BP 169/96; PULSE 105; RESP 20
[2023-09-24 16:00] VITALS: BP 126/77; PULSE 92; RESP 20
[2023-09-24 20:00] VITALS: BP 155/84; PULSE 101; RESP 17; O2SAT 95
[2023-09-24] MEDS: HYDRALAZINE 25MG TABLET PO SCH (20:13)
[2023-09-25] VITALS (7 sets, daily range): BP systolic 134–167; BP diastolic 72–97; PULSE 82–96; RESP 17–20; O2SAT 94–95
[2023-09-25 06:35] LABS: BASOPHILS # (AUTO) 0.01 K/uL (0.00-0.20); BASOPHILS % (AUTO) 0.2 % (0.0-5.0); EOSINOPHILS # (AUTO) 0.05 K/uL (0.00-0.70); EOSINOPHILS % (AUTO) 0.9 % (0.0-8.0); HEMATOCRIT 24.4 % (36-48); IMMATURE GRANULOCYTE ABSOLUTE 0.02 K/uL (0-1); LYMPHOCYTES # (AUTO) 0.9 K/uL (1.0-4.8); LYMPHOCYTES % (AUTO) 17.3 % (21.0-51.0); MEAN CORPUSCULAR HEMOGLOBIN 27.5 pg (27.0-33.0); MEAN CORPUSCULAR HGB CONC 31.6 g/dL (32.0-36.0); MEAN CORPUSCULAR VOLUME 87.1 fL (79-99); MONOCYTES # (AUTO) 0.3 K/uL (0.1-1.0); MONOCYTES % (AUTO) 5.3 % (3.0-13.0); NEUTROPHILS % (AUTO) 75.9 % (40.0-77.0); PLATELET COUNT (AUTO) 133 K/uL (130-400); RED CELL DISTRIBUTION WIDTH 20.5 % (11.0-15.5); WHITE BLOOD COUNT (AUTO) 5.3 K/uL (4.8-10.8)
[2023-09-25 06:45] LABS: ALANINE AMINOTRANSFERASE < 6 U/L (12-78); ALBUMIN 1.9 g/dL (3.5-5.0); ASPARTATE AMINOTRANSFERASE 9 U/L (10-37); BILIRUBIN,TOTAL 0.3 mg/dL (0.2-1.0); CARBON DIOXIDE 28 mmol/L (21-32); CHLORIDE 104 mmol/L (101-111); CREATININE 0.8 mg/dL (0.5-1.0); GLOMERULAR FILTR. RATE CALC 91 mL/min (>90); GLUCOSE,RANDOM 217 mg/dL (70-105); SODIUM SERUM 137 mmol/L (136-145); TOTAL PROTEIN, SERUM 6.9 g/dL (6.0-8.3); UREA NITROGEN, BLOOD 14 mg/dL (7-18)
[2023-09-25] MEDS ORDERED: MAGNESIUM 4GM PREMIX 100ML IV SCH (09:00)
[2023-09-25] MEDS: HYDROXYZINE 25 MG TABLET PO PRN (21:11)
[2023-09-25] MEDS: MAGNESIUM 2GM PREMIX 50ML 50 ML IV PRN (22:56)
[2023-09-26] VITALS: BP 115/68; PULSE 81; RESP 20
[2023-09-26 04:00] VITALS: BP 155/93; PULSE 84; RESP 20
[2023-09-26 07:51] VITALS: BP 156/88; PULSE 92; RESP 20
[2023-09-26 08:00] VITALS: O2SAT 95
[2023-09-26 12:00] VITALS: BP 153/85; PULSE 92; RESP 20
[2023-09-26] MEDS ORDERED: INSULIN LISPRO 100 UNIT/ML 3ML SQ SCH (12:00)
[2023-09-26] MEDS ORDERED: GABAPENTIN 100 MG CAPSULE PO SCH (14:00)
== END 2023-09-26 14:00 | DRG 564 ==
LOC: EDH 13:07 → OBSVTOIN 13:08 → EDHIP 13:08 → 3AH 20:50
PROVIDERS: ADMIT Hospitalist; ATTEND Hospitalist
DX: T87.81 Dehiscence of amputation stump (principal); E43 Unspecified severe protein-calorie malnutrition; E78.5 Hyperlipidemia, unspecified; E11.65 Type 2 diabetes mellitus with hyperglycemia; K31.84 Gastroparesis; E11.43 Type 2 diabetes mellitus with diabetic autonomic (poly)neuropathy; E11.51 Type 2 diabetes mellitus with diabetic peripheral angiopathy without gangrene; F32.A Depression, unspecified; F41.9 Anxiety disorder, unspecified; I10 Essential (primary) hypertension; Z79.899 Other long term (current) drug therapy; Z89.512 Acquired absence of left leg below knee; Z91.81 History of falling; Z90.49 Acquired absence of other specified parts of digestive tract; Y79.3 Surgical instruments, materials and orthopedic devices (including sutures) associated with adverse incidents; Y83.8 Other surgical procedures as the cause of abnormal reaction of the patient, or of later complication, without mention of misadventure at the time of the procedure; W18.39XA Other fall on same level, initial encounter; Y93.89 Activity, other specified; Y92.89 Other specified places as the place of occurrence of the external cause; Y99.8 Other external cause status; Z68.22 Body mass index [BMI] 22.0-22.9, adult
CPT/HCPCS: 36415; 70450; 71045; 73552; 73590; 78264; 80048; 80053; 80076; 82140; 82550; 82948; 83605; 83735; 83880; 84145; 85025; 85027; A6248; A9541; G0378; J0360; J1170; J1644; J1815; J1885; J2270; J2405; J2550; J3475; J3490; J7030